=== PATIENT | female | born 1985 | race Caucasian/White ===

== ENCOUNTER 2024-06-03 10:58 | Outpatient (OUT) | payer BC, SELFPAY ==
--- NOTE | 2024-06-03 11:33 | ECG_ITS ---
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
[2024-06-03 11:49] LABS: Basophils Absolute Auto 0.1 10^3/uL (0.0-0.1); Basophils Percent Auto 0.8 % (0.2-2.0); Eosinophils Absolute Auto 0.2 10^3/uL (0.0-0.7); Eosinophils Percent Auto 2.9 % (0.9-7.0); Hematocrit 39.1 % (36.0-48.0); Hemoglobin 13.2 g/dL (12.0-16.0); Immature Granulocytes Abs Auto 0.02 10^3/uL (0.00-0.03); Immature Granulocytes Pct Auto 0.3 % (0.0-0.5); Lymphocytes Absolute Auto 2.4 10^3/uL (1.2-3.8); Lymphocytes Percent Auto 37.5 % (20.5-60.0); Mean Corpuscular HGB Conc 33.8 g/dL (29.9-35.2); Mean Corpuscular Hemoglobin 29.5 pg (26.7-34.0); Mean Corpuscular Volume 87.3 fL (81.0-99.0); Mean Platelet Volume 9.5 fL (9.5-13.5); Monocytes Absolute Auto 0.5 10^3/uL (0.3-0.8); Monocytes Percent Auto 7.2 % (1.7-12.0); Neutrophils Absolute Auto 3.2 10^3/uL (1.4-6.5); Neutrophils Percent Auto 51.3 % (43.0-75.0); Platelet Count 233 10^3/uL (150-450); Red Blood Count 4.48 10^6/uL (4.20-5.40); White Blood Count 6.3 10^3/uL (4.0-11.0)
[2024-06-03 12:14] LABS: Anion Gap 10.9; BUN Creatinine Ratio 7.1; Calcium 9.1 mg/dL (8.5-10.1); Carbon Dioxide 28.9 mmol/L (21.0-32.0); Chloride 103 mmol/L (98-107); Estimated GFR (African America >60 (>=60 mL/min/1.73m^2); Estimated GFR (Non-African Ame >60 (>=60 mL/min/1.73m^2); Glucose 93 mg/dL (74-106); Potassium 3.8 mmol/L (3.5-5.1); Sodium 139 mmol/L (136-145)
== END 2024-06-03 10:59 | disposition home or self-care (01) ==
LOC: PST 10:59
PROVIDERS: PCP Family Medicine; Visit Provider Obstetrics & Gynecology
DX: Z01.810 Encounter for preprocedural cardiovascular examination (principal); Z01.812 Encounter for preprocedural laboratory examination; R10.2 Pelvic and perineal pain; N94.10 Unspecified dyspareunia
CPT/HCPCS: 80048; 85025; 93005

== ENCOUNTER 2024-06-12 06:15 | Day surgery (SDC) | payer BC, SELFPAY ==
[2024-06-03 11:37] VITALS: BP 108/72; PULSE 65; TEMP 36.5; O2SAT 99; BMI 27.1
[2024-06-12] VITALS (15 sets, daily range): BP systolic 97–117; BP diastolic 72–94; PULSE 68–91; TEMP 36.1–36.6; O2SAT 93–100; BMI 27.0
[2024-06-12 06:30] LABS: Basophils Absolute Auto 0.1 10^3/uL (0.0-0.1); Basophils Percent Auto 0.7 % (0.2-2.0); Eosinophils Absolute Auto 0.3 10^3/uL (0.0-0.7); Eosinophils Percent Auto 3.1 % (0.9-7.0); Hematocrit 41.6 % (36.0-48.0); Hemoglobin 14.4 g/dL (12.0-16.0); Immature Granulocytes Abs Auto 0.03 10^3/uL (0.00-0.03); Immature Granulocytes Pct Auto 0.4 % (0.0-0.5); Lymphocytes Absolute Auto 2.6 10^3/uL (1.2-3.8); Lymphocytes Percent Auto 32.7 % (20.5-60.0); Mean Corpuscular HGB Conc 34.6 g/dL (29.9-35.2); Mean Corpuscular Hemoglobin 30.2 pg (26.7-34.0); Mean Corpuscular Volume 87.2 fL (81.0-99.0); Mean Platelet Volume 9.7 fL (9.5-13.5); Monocytes Absolute Auto 0.5 10^3/uL (0.3-0.8); Monocytes Percent Auto 5.8 % (1.7-12.0); Neutrophils Absolute Auto 4.6 10^3/uL (1.4-6.5); Neutrophils Percent Auto 57.3 % (43.0-75.0); Platelet Count 229 10^3/uL (150-450); Red Blood Count 4.77 10^6/uL (4.20-5.40); Red Cell Distribution Width 11.9 % (11.0-15.0); White Blood Count 8.1 10^3/uL (4.0-11.0)
[2024-06-12 06:52] LABS: HCG Quantitative <1 mIU/mL
[2024-06-12] MEDS: LACTATED RINGER'S SOLUTION 1,000 ML 50 ML IV ×3 (07:06→10:11)
[2024-06-12] MEDS: SCOPOLAMINE 1 MG/3 DAYS TRANSDERM PATCH 1 PATCH TD (07:12)
--- NOTE | 2024-06-12 08:15 | P.ON_ITS ---
Brief Operative Note Date of procedure: 06/12/24 Pre-op diagnosis general: pelvic pain, aub, dysmenorrhea Post-op diagnosis: same as pre-op Procedure: NAME OF PROCEDURE: [ D&c hysteroscopy, dx laparoscopy ] PROCEDURE: The patient was taken back to the Operating Room where she was prepped and draped in normal sterile fashion after being placed under general anesthesia without difficulty. She was also placed in the dorsal lithotomy position. A weighted speculum was placed in the patient?s vagina. The anterior lip of the cervix was identified and grasped with a single tooth tenaculum. The patient?s uterus was then sounded roughly to [? 8] cm. The patient was then gently dilated using Hegar dilators. The hysteroscope was passed through the patient?s cervix into the uterus. Both ostia were identified. fluffy appearing endometrium. No gross evidence of malignancy, no gross evidence of polyps or fibroids. Gentle currettage was performed, The hysteroscope was then removed from the uterus. The endometrial curettings were sent out to pathology. The single tooth tenaculum was then removed from the patient's anterior lip of the cervix where excellent hemostasis was noted. All instruments were removed from the patient?s vagina. . A sponge stick was placed into the patient's vagina. Attention was turned to the patient's abdomen, where a small umbilical incision was made. The fascia was tented using Roxana clamps and the fascia was entered sharply. Confirmation of intraabdominal placement of the 10 mm port was confirmed under direct visualization using a laparoscope. The patient's abdomen was then insufflated using CO2 gas with approximately 4 liters. A second port was placed left laterally, this was done under direct visualization with a 5 mm port. Survey of the patient's abdomen demonstrated normal liver and gallbladder. Survey of the patient's pelvic anatomy demonstrated normal appearing rt and lt ovary and tubes as well as normal appearing uterus. No endometrial implants could be noted, no evidence of any pelvic disease was seen, normal appearing pelvic cavity. All instruments were removed from the patient's abdomen. The patient's abdomen was deinsufflated of CO2 gas. The patient tolerated the procedure well. Sponge stick was removed from the patient's vagina. The patient's infraumbilical fascia was closed using #0 Vicryl on a GI needle. The patient's skin was closed laterally and infraumbilically using 4-0 Vicryl. The patient tolerated the procedure well. Sponge, lap and needle counts were correct x 2. The patient was taken to Recovery Room in stable condition. Anesthesia: MAC Surgeon: Henrique Hennessy [employer] Milk Receiver: Almita Beard Estimated blood loss (mL): 5 Pathology: other (endometrial currettings) Condition: stable Disposition: PACU Urinary Catheter Management Urinary Catheter Management 2-way Urethral: Cath placed during this visit: no
[2024-06-12] MEDS: MEPERIDINE HCL/PF 25 MG/ML VIAL IM (10:03)
== END 2024-06-12 11:35 | disposition home or self-care (01) ==
PROVIDERS: PCP Family Medicine; Visit Provider Obstetrics & Gynecology
PROC: (CPT 00840; principal; 2024-06-12 07:30)
DX: R10.2 Pelvic and perineal pain (principal); N94.10 Unspecified dyspareunia; N93.9 Abnormal uterine and vaginal bleeding, unspecified; J45.909 Unspecified asthma, uncomplicated; M79.7 Fibromyalgia; K21.9 Gastro-esophageal reflux disease without esophagitis; K30 Functional dyspepsia; Q79.60 Ehlers-Danlos syndrome, unspecified; N84.0 Polyp of corpus uteri
CPT/HCPCS: 00840; 00952; 49320; 58558; 36415; 84702; 85025; J0131; J1100; J2175; J2250; J2371; J2405; J2704; J3010

== ENCOUNTER 2024-08-12 09:57 | Outpatient (OUT) | payer BC, SELFPAY ==
--- OUTSIDE RECORDS SUMMARY | 2024-07-17 10:27 | XMS_ITS ---
Author Name Auto Generated Organization OHIP Support Name Relationship Address Phone JENS, SOFIA Next of Kin [address] [place] [address], [place] [address] + Jens, Sofia Next of Kin [address] [place] [address], [place] [address] + JENS, SOFIA Next of Kin [address] [place] [address], [place] [address] + JENS, SOFIA Next of Kin [address] [place] [address], [place] [address] Unavailable JENS, SOFIA Next of Kin [address] [place] [address], [place] [address] + JENS, SOFIA Next of Kin [address] [place] [address], [place] [address] + JENS, SOFIA Next of Kin [address] [place] [address], [place] [address] + JENS, SOFIA Next of Kin [address] [place] [address], [place] [address] + JENS, SOFIA Next of Kin [address] [place] [address], [place] [address] + JENS, SOFIA Next of Kin [address] [place] [address], [place] [address] + JENS, SOFIA Next of Kin [address] [place] [address], [place] [address] + JENS, SOFIA Next of Kin [address] [place] [address], [place] [address] + JENS, SOFIA Next of Kin [address] [place] [address], [place] [address] + JENS, SOFIA Next of Kin [address] [place] [address], [place] [address] + JENS, SOFIA Next of Kin [address] [place] [address], [place] [address] + JENS, SOFIA Next of Kin [address] [place] [address], [place] [address] + JENS, SOFIA Next of Kin [address] [place] [address], [place] [address] + JENS, SOFAI Next of Kin [address] [place] [address], [place] [address] + JENS, SOFIA Next of Kin [address] [place] [address], [place] [address] + JENS, SOFIA Next of Kin [address] [place] [address], [place] [address] + JENS, SOFIA Next of [address] [place] [address] + JENS, SOFIA Next of Kin [address] [place] [address], [place] [address] + JENS, SOFIA Next of [address] [place] [address] + Care Team Providers Care Water Supervisor Name Role Phone JENNIFER GALVAN S Attending Unavailable DEBBIE DOMINGUEZ Attending Unavailable RUSHER, JENNIFER S Referring Unavailable RUSHER, JENNIFER S Attending Unavailable NEHEMIAS HENNESSY Attending Unavailable CARMINANEHEMIAS Attending Unavailable CARMINANEHEMIAS Attending Unavailable RUSHER, JENNIFER S Referring Unavailable RUSHER, JENNIFER S Referring Unavailable RUSHER, JENNIFER S Attending Unavailable RUSHER, JENNIFER S Attending Unavailable RUSHER, JENNIFER S Attending Unavailable GILSE, KIERRA A Referring Unavailable GILES, KIERRA A Primary Care Unavailable GILES, KIERRA A Referring Unavailable GILES, KIERRA A Primary Care Unavailable GILES, KIERRA A Attending Unavailable GILES, KIERRA A Referring Unavailable GILES, KIERRA A Primary Care Unavailable GILES, KIERRA A Referring Unavailable GILES, KIERRA A Primary Care Unavailable HUSSAIN POWELL Attending Unavailable HUSSAIN POWELL Referring Unavailable GILES, KIERRA A Primary Care Unavailable HUSSAIN POWELL Referring Unavailable GILES, KIERRA A Primary Care Unavailable RUSHER, JENNIFER S Admitting Unavailable RUSHER, JENNIFER S Attending Unavailable GILES, KIERRA A Primary Care Unavailable PABLO PRUITT Attending Unavailable GILES, KIERRA A Primary Care Unavailable PABLO PRUITT Attending Unavailable KIERRA GILES Primary Care Unavailable KIERRA GILES Referring Unavailable KIERRA GILES Primary Care Unavailable NEHEMIAS HENNESSY Referring Unavailable KIERRA GILES Primary Care Unavailable Nehemias Hennessy Attending Unavailable Nehemias Hennessy Admitting Unavailable PROBLEMS DATE TYPE CONDITION / CODE ATTENDING STATUS MARLEY RCE 05/13/2024 Unknown Pelvic and perin eal pain / R10.2(ICD-10) [facility] 01/01/2024 Unknown Unspecified dysp areunia / N94.10(ICD-10) [facility] 12/06/2023 Unknown Other specified postprocedural states / Z98.890(ICD-10) JENNIFER GALVAN [facility] 12/06/2023 Unknown ganglion cyst le ft foot / UNK(Unknown) JENNIFER GALVAN [facility] 11/28/2023 Unknown Encounter for ot her preprocedural examination / Z01.818(ICD-10) [facility] 11/28/2023 Unknown Chronic kidney d isease, unspecified / N18.9(ICD-10) [facility] 11/28/2023 Unknown Sleep apnea, unspecified / G47.30(ICD-10) [facility] 11/15/2023 Unknown Aliyah-Danlos sy ndrome, 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) KIERRA GILES [facility] 09/17/2023 Unknown Tachycardia, unspecified / R00.0(ICD-10) [facility] 09/17/2023 Unknown Shortness of elvi ath / R06.02(ICD-10) [facility] 09/17/2023 Unknown Fibromyalgia / M79.7(ICD-10) [facility] 09/17/2023 Unknown Migraine with au ra, not intractable, without status migrainosus / G43.109(ICD-10) [facility] PROCEDURES No Procedure Records Found RESULTS PATHOLOGY REQUEST FOR LAB DELMY Collected: 06/12/2024 7:56 AM Status: F Source: [facility] Order Comment: [facility] TYPE CODE TESTS RESULT OUT OF RANGE REFERENCE UNITS LAB PATH [facility] Pathology Request for Lab Delmy Result Comment: See report. Scanned copy available in EMR. PERFORMED BY: [place] [id number] PATHOLOGIST LEAD TANK MECHANIC CARRILLO BLANCA M.D. Performed By: #### [facility] TO [facility] #### [address] [address] [facility] DEHYDROEPIANDROSTERONE, S Collected: 4:31 PM Status: COMPLETED Source: [facility] TYPE CODE TESTS RESULT OUT OF RANGE REFERENCE UNITS LAB DHPDRR(LOINC) Dehydroepian drosterone, S 2.5 <10 ng/mL Result Comment: NOTE ADDITIONAL INFORMATION This test was developed and its performance characteristics determined by [facility] in a manner consistent with CLIA requirements. This test has not been cleared or approved by the U.S. Food and Drug Administration. Test Performed by: [facility] - [place] [id number] Coke Burner: Macrina Multani Ph.D.; CLIA# [id number] Performed By: #### 2193-1 ## ## [facility] ([id number]) [address] [place] [address] CBC AND AUTO DIFF Collected: 05/13/2024 1:49 PM Status: COMPLETED Source: [facility] TYPE CODE TESTS RESULT OUT OF RANGE REFERENCE UNITS LAB WBC(LOINC) WBC COUNT 6.6 4.0-11.0 X10E9/L LAB RBC(LOINC) RBC COUNT 4.50 3.80-5.20 X10E12/L LAB HGB(LOINC) HEMOGLOBIN 13.6 11.7-15.5 g/dL LAB HCT(LOINC) HEMATOCRIT 39.4 35-47 % LAB MCV(LOINC) MCV 88 80-100 fL LAB MCH(LOINC) MCH 30.3 27-34 pg LAB MCHC(LOINC) MCHC 34.6 32-36 g/dL LAB RDW(LOINC) RDW 13.5 11.5-15.0 % LAB PLTC(LOINC) PLATELET COUNT 252 150-450 X10E9 /L LAB MPV(LOINC) MPV 8.6 7-12 fL LAB NEUT(LOINC) % NEUTROPHILS 55.2 % LAB LYMP(LOINC) % LYMPHOCYTES 33.7 % LAB MONO(LOINC) % MONOCYTES 6.9 % LAB EOS(LOINC) % EOSINOPHILS 3.0 % LAB BASO(LOINC) % BASOPHILS 1.2 % LAB ANEUT(LOINC) ABSOLUTE NEUTROPHIL 3.7 1.5-6.6 X10E9/L LAB ALYMP(LOINC) ABSOLUTE LYMPHOCYTE 2.2 1.0-3.5 X10E9/L LAB AMONO(LOINC) ABSOLUTE MONOCYTE 0.5 0-0.9 X10E9/L LAB AEOS(LOINC) ABSOLUTE EOSINOPHIL 0.2 0.0-0.4 X10E9/L LAB ABASO(LOINC) ABSOLUTE BASOPHIL 0.1 0.0-0.2 X10E9/L Performed By: #### CBCA, 204 15-6, THYR, HA1C, 22701-4, 99535-5 #### [facility] ([id number]) [address] [place] [address], [address] [place] [address] SERUM B HCG,3RD I.S. Collected: 025 1:49 PM Status: COMPLETED Source: [facility] TYPE CODE TESTS RESULT OUT OF RANGE REFERENCE UNITS LAB HCG(LOINC) SERUM B HCG,3RD I.S. <5 mIU/mL Result Comment: NEW REFERENC E RANGE WEEKS (SINCE LMP) MIU/mL 3 WEEKS 5 - 50 4 WEEKS 5 - 426 5 WEEKS 18 - 7,340 6 WEEKS 1,080 - 56,500 7-8 WEEKS 7,650 - 229,000 9-12 WEEKS 25,700 - 288,000 13-16 WEEKS 13,300 - 254,000 17-24 WEEKS 4,060 - 165,400 25-40 WEEKS 3,640 - 117,000 MALES AND NON- FEMALES - <5 MIU/mL This test has been FDA approved for use in only. Elevated levels are not necessarily diagnostic for trophoblastic or nontrophoblastic neoplasms. Performed By: #### CBCA, 204 15-6, THYR, HA1C, 34901-5, 61831-9 #### [facility] ([id number]) [address] [place] [address], [address] [place] [address] THYROID PROFILE Collected: 05/13/2024 1:49 PM Status: COMPLETED Source: [facility] TYPE CODE TESTS RESULT OUT OF RANGE REFERENCE UNITS LAB TSH(LOINC) TSH 1.90 0.49-4.67 uIU/mL LAB FT4(LOINC) FREE T4 0.97 0.61-1.60 ng/dL Performed By: #### CBCA, 15-6, THYR, HA1C, 43552-6, 12540-3 #### [facility] ([id number]) [address] [place] [address], [address] [place] [address] HGB A1C (GLYCO-HGB) Collected: 05/13/2024 1:49 PM Status: COMPLETED Source: [facility] TYPE CODE TESTS RESULT OUT OF RANGE REFERENCE UNITS LAB HBA1C(LOINC) HEMOGLOBIN A1C 4.9 4.4-5.6 % Result Comment: NOTE ADA Guidelines Result HgbA1c Normal : less than 5.7 % Prediabetes : 5.7 % to 6.4 % Diabetes : > 6.4 % Use with caution in patients with abnormal hemoglobin variants as the half-life of red blood cells and in vivo glycation rates are affected. LAB EAG(LOINC) AVERAGE GLUCOSE 94 mg/dL Performed By: #### CBCA, 204 15-6, THYR, HA1C, 12998-6, 34029-3 #### [facility] ([id number]) [address] [facility], [address] [place] [address] FOLLICLE STIM HORMONE Collected: 05/13/2024 1:4 9 PM Status: COMPLETED Source: [facility] TYPE CODE TESTS RESULT OUT OF RANGE REFERENCE UNITS LAB FSH(LOINC) FOLLICLE STIM HORMONE 2.9 mIU/mL Result Comment: NORMAL FEMALE Luteal 1.8-5.1 mIU/mL Follicular 3.8-8.8 mIU/mL Mid Cycle 4.5-22.5 mIU/mL [place] 16.7-113.6 mIU/mL Performed By: #### MARKUS, 15-6, THYR, HA1C, 11841-1, 36732-0 #### [facility] ([id number]) [address] [place] [address], [address] [place] [address] LUTEINIZING HORMONE Collected: 05/13/2024 1:49 PM Status: COMPLETED Source: [facility] TYPE CODE TESTS RESULT OUT OF RANGE REFERENCE UNITS LAB LH(LOINC) LUTEINIZING HORMONE 3.2 mIU/mL Result Comment: NORMAL FEMALE Follicular 2.1-10.9 mIU/mL Mid Cycle 19.2-103 mIU/mL Luteal 1.2-12.9 mIU/mL [place] 10.9-58.6 mIU/mL Performed By: #### LCA, 15-6, THYR, HA1C, 83843-4, 92801-9 #### [facility] ([id number]) [address] [place] [address], [address] [place] [address] DHEA S Collected: 05/13/2024 1:49 PM S tatus: COMPLETED Source: [facility] TYPE CODE TESTS RESULT OUT OF RANGE REFERENCE UNITS LAB DHEAS(LOINC) DHEA S 130 23-266 ug/dL Performed By: #### 2191-5 ## ## [facility] ([id number]) [address] [place] [address], [address] [place] [address] US PELVIC WITH TRANSVAGINAL Observed: 01/01/2024 10:44 AM Status: COMPLETED Source: [facility] PELVIC WITH TRANSVAGINAL CLINICAL INFORMATION: Unspecified dyspareunia COMPARISON: None. PROCEDURE: Transabdominal imaging was obtained for the detection of extra- adnexal pathology. Transvaginal imaging was obtained for better visualization of the adnexa and endometrium. FINDINGS: The uterus measures 8.7 x 6.1 x 4.5 cm. Endometrial thickness is 8 mm. Cervical nabothian cysts. The right ovary measures 3.3 x 2.0 x 1.4 cm. The left ovary measures 3.3 x 1.9 x 2.1 cm. Dominant follicle left ovary 1.7 cm. No free fluid. IMPRESSION: * No acute findings. Finalized by Jeff Perry MD on 01/01/2024 11:16 AM SURGICAL PATHOLOGY Collected: 8:08 AM Status: COMPLETED Source: [facility] TYPE CODE TESTS RESULT OUT OF RANGE REFERENCE UNITS LAB [id number]&rpt Surgical Pathology Result Comment: [facility] [address] [place] [address] Surgical Pathology Consultation Patient Name:KAYLA COLINDRES:1985 (Age: 38)Gender:FTaken:4Reported:12/14/2023hysician(s):Jennifer Ramos To: Rec. #:[id number]: #[id number] Final Pathologic Diagnosis Soft tissue, left foot: Ganglion cyst. Report Electronically Signed Out [id number] Whittaker MD Interpretation performed at [facility], [address] [place] [address], License number: [id number]. Clinical History Ganglion cyst left foot. Gross Description Received in formalin labeled JENS, left foot mass is a adrian-yellow portion of skin tissue that measures 1.0 x 0.3 x 0.1 cm. The specimen exhibits underlying subcutaneous soft tissue that measures 1.9 x 1.0 x 0.8 cm. The resection margin is inked green. The specimen is serially section to reveal a cystic structure filled with clear mucoid material. A hardware supplies sales representative cross-section is submitted in a single cassette. (1, ss, [id number],m6) DM. dm/12/07/2023NSK Specimen(s) Received Mass left foot Fee Codes(s): 1; 61320 URINE NURSING Collected: 12/06/2023 6 :40 AM Status: COMPLETED Source: [facility] TYPE CODE TESTS RESULT OUT OF RANGE REFERENCE UNITS LAB NUCG(LOINC) URINE NURSING Negative (qualifier value) NEG Performed By: #### 2106-3 ## ## [facility] ([id number]) [address] [place] [address], [place] [address] BASIC METABOLIC PANL Collected: 11/28/2023 1:45 PM Status: COMPLETED Source: [facility] TYPE CODE TESTS RESULT OUT OF RANGE REFERENCE UNITS LAB NA(LOINC) SODIUM 138 134-146 mmol/L LAB K(LOINC) POTASSIUM 3.7 3.5-5.0 mmol/L LAB CL(LOINC) CHLORIDE 102 98-109 mmol/L LAB CO2(LOINC) CARBON DIOXIDE 27 22-32 mmol/L LAB AGAP(LOINC) ANION GAP 9 5-15 mmol/L LAB BUN(LOINC) BLOOD UREA NITROGEN 10 5-23 mg/dL LAB CRET(LOINC) CREATININE 0.97 0.40-1.00 mg/dL Result Comment: METHOD TRACE ABLE TO IDMS STANDARD LAB GLU(LOINC) GLUCOSE 100 High 65-99 mg/dL LAB CA(LOINC) CALCIUM 9.4 8.5-10.5 mg/dL LAB EGFR(LOINC) eGFR (CKD-EPI) NON-RACE DEPENDENT 76 >59 ml/min/1. 73sq.m Result Comment: Reported eGFR is based on the CKD-EPI 2020 equation that does not use a race coefficient. Performed By: #### KENNY, PINR #### [facility] ([id number]) [address], [address] [place] [address] PROTIME AND INR Collected: 11/28/2023 1:45 PM Status: COMPLETED Source: [facility] TYPE CODE TESTS RESULT OUT OF RANGE REFERENCE UNITS LAB PROX(LOINC) PROTIME 13.2 9.8-13.2 sec LAB INR(LOINC) INR 1.1 0.8-1.1 Performed By: #### BMP, PINR #### [facility] ([id number]) [address], [address] [place] [address] MR FOOT LEFT W AND WO IV CONTRAST Observed: 11/07/2023 12:00 AM Status: F Source: [facility] EPIC EXAM: MR FOOT LEFT W AND WO IV CONTRAST HISTORY: Soft tissue lesion along the medial aspect of the first metatarsal COMPARISON : None available TECHNIQUE: Multiplanar multisequence MRI of the forefoot was performed without and with contrast. FINDINGS: Within the subcutaneous soft tissues along the medial aspect of the neck of the first metatarsal just distal to a marker placed on the skin there is a round 8 mm hyperintense T2/hypointense T1 structure demonstrating very thin peripheral enhancement. No adjacent soft tissue edema. No signal abnormality of the first metatarsal or other visualized bones. Flexor and extensor tendons are intact. Musculature of the foot is within normal limits. IMPRESSION: Findings most compatible with 8 mm ganglion along the medial aspect of the neck of the first metatarsal. ELECTRONICALLY SIGNED BY: Pedro Rodriguez DO XR CHEST 2 VWS Observed: 09/17/2023 5:25 PM Status: COMPLETED Source: [facility] XR CHEST 2 VWS XR CHEST 2 VWS HISTORY: Shortness of breath, cough COMPARISON: Chest x-ray 03/22/2020 FINDINGS: PA and lateral upright films obtained. The cardiomediastinal silhouette is within normal limits. No pneumothorax or pleural effusion. No consolidation. IMPRESSION: * No acute cardiopulmonary process. ISebastian MD have personally reviewed the image(s) and agree with and/or edited the report Finalized by Sebastian Sandhu MD on 09/18/2023 11:46 AM CBC AND AUTO DIFF Collected: 09/17/2023 5:02 PM Status: COMPLETED Source: [facility] TYPE CODE TESTS RESULT OUT OF RANGE REFERENCE UNITS LAB WBC(LOINC) WBC COUNT 7.7 4.0-11.0 X10E9/L LAB RBC(LOINC) RBC COUNT 4.53 3.80-5.20 X10E12/L LAB HGB(LOINC) HEMOGLOBIN 13.5 11.7-15.5 g/dL LAB HCT(LOINC) HEMATOCRIT 39.3 35-47 % LAB MCV(LOINC) MCV 87 80-100 fL LAB MCH(LOINC) MCH 29.7 27-34 pg LAB MCHC(LOINC) MCHC 34.3 32-36 g/dL LAB RDW(LOINC) RDW 13.4 11.5-15.0 % LAB PLTC(LOINC) PLATELET COUNT 245 150-450 X10E9 /L LAB MPV(LOINC) MPV 7.9 7-12 fL LAB NEUT(LOINC) % NEUTROPHILS 53.6 % LAB LYMP(LOINC) % LYMPHOCYTES 38.0 % LAB MONO(LOINC) % MONOCYTES 4.6 % LAB EOS(LOINC) % EOSINOPHILS 3.0 % LAB BASO(LOINC) % BASOPHILS 0.8 % LAB ANEUT(LOINC) ABSOLUTE NEUTROPHIL 4.1 1.5-6.6 X10E9/L LAB ALYMP(LOINC) ABSOLUTE LYMPHOCYTE 2.9 1.0-3.5 X10E9/L LAB AMONO(LOINC) ABSOLUTE MONOCYTE 0.4 0-0.9 X10E9/L LAB AEOS(LOINC) ABSOLUTE EOSINOPHIL 0.2 0.0-0.4 X10E9/L LAB ABASO(LOINC) ABSOLUTE BASOPHIL 0.1 0.0-0.2 X10E9/L Performed By: #### CBCA, 824 77-1, CMP, 1987-, THYR, 31446-7 #### [facility] ([id number]) [address], [address] [place] [address] ESR, ERYTHROCYTE SEDIMENTATI ON RATE Collected: 09/17/2023 5:02 PM Status: COMPLETED Source: [facility] TYPE CODE TESTS RESULT OUT OF RANGE REFERENCE UNITS LAB ESR(LOINC) ESR, ERYTHROCYTE SEDIMENTATION RATE 1 0-20 mm/h Performed By: #### MARKUS, 824 77-1, CMP, 1987-06, THYR, 84448-8 #### [facility] ([id number]) [address] [facility], [address] [place] [address] COMPREHENSIVE METABOLIC PANEL Collected: 2023 5:02 PM Status: COMPLETED Source: [facility] TYPE CODE TESTS RESULT OUT OF RANGE REFERENCE UNITS LAB NA(LOINC) SODIUM 139 134-146 mmol/L LAB K(LOINC) POTASSIUM 3.4 Low 3.5-5.0 mmol/L LAB CL(LOINC) CHLORIDE 103 98-109 mmol/L LAB CO2(LOINC) CARBON DIOXIDE 28 22-32 mmol/L LAB AGAP(LOINC) ANION GAP 8 5-15 mmol/L LAB BUN(LOINC) BLOOD UREA NITROGEN 6 5-23 mg/dL LAB CRET(LOINC) CREATININE 1.03 High 0.40-1.00 mg/dL Result Comment: METHOD TRACE ABLE TO IDMS STANDARD LAB GLU(LOINC) GLUCOSE 88 65-99 mg/dL LAB CA(LOINC) CALCIUM 9.4 8.5-10.5 mg/dL LAB TP(LOINC) TOTAL PROTEIN 7.4 6.0-8.0 g/dL LAB ALB(LOINC) ALBUMIN 4.3 3.2-5.3 g/dL LAB ALK(LOINC) ALKALINE PHOSPHATASE 21 Low 39-130 U/L LAB AST(LOINC) AST 12 0-41 U/L LAB ALT1(LOINC) ALT 9 0-31 U/L LAB TBIL(LOINC) BILIRUBIN,TOTAL 0.7 0.3-1.2 mg/d L LAB EGFR(LOINC) eGFR (CKD-EPI) NON-RACE DEPENDENT 70 >59 ml/min/1 .73sq.m Result Comment: Reported eGFR is based on the CKD-EPI 2020 equation that does not use a race coefficient. Performed By: #### MARKUS, 824 77-1, CMP, 1987-06, THYR, 76218-0 #### [facility] ([id number]) [address] [place] [address], [address] [address] C REACTIVE PROTEIN Collected: 09/17/2023 5:02 P M Status: COMPLETED Source: [facility] TYPE [facility] RESULT OUT OF RANGE REFERENCE UNITS LAB CRP(LOINC) C REACTIVE PROTEIN 0.2 0.000-0.744 mg/dL Performed By: #### CBCA, 824 77-1, [facility], 1989-06, THYR, 07302-4 #### [facility] ([id number]) [address] [place] [address], [address] [address] THYROID PROFILE Collected: 09/17/2023 5:02 PM Status: COMPLETED Source: [facility] TESTS RESULT OUT OF RANGE REFERENCE UNITS LAB TSH(LOINC) TSH 2.37 0.49-4.67 uIU/mL LAB FT4(LOINC) FREE T4 0.92 0.61-1.60 ng/dL Performed By: #### CBCA, 824 77-1, CMP, 1987-06, THYR, 89512-3 #### [facility] ([id number]) [address] [place] [address] [place]ALE SCREEN W/REFLEX Collected: 09/17/2023 5:02 PM Status: COMPLETED Source: [facility] TYPE [facility]S RESULT OUT OF RANGE REFERENCE UNITS LAB GALE(LOINC) GALE Screen w/reflex Negative (qualifier value) NEG Result Comment: Testing performed using multiplex flow immunoassay. Eleven different antigens associated with systemic autoimmune diseases (dsDNA,Sm,Sm/CORPORATE DRIVER,CORPORATE DRIVER,Chromatin, SSA,SSB,Candice-1,Scl70,Ribo P,Centromere B) are included in this screening test. Performed By: #### CBCA, 824 77-1, CMP, 1987-06, THYR, 88909-4 #### [facility] ([id number]) [address] [place] [address], [address] [address] ALLERGIES DATE TYPE / CODE NAME / CODE REACTION SEVERITY SOURCE 10/08/2021 DRUG INGREDI/419 [id number]([facility] ED CT) METOCLOPRAMIDE Anxiety Low [facility] 10/08/2021 DRUG INGREDI~NON -CBORD/4195 61463([facility] D [facility]) METOCLOPRAMIDE Anxiety~Hives~I tching Low [facility] 01/02/2017 Drug Allergy/416 283597([facility] ED CT) hydromorphone/[id number] 2(RXNORM) Unknown Reaction Unknown [facility] 06/08/2015 DRUG INGREDI~NON -CBORD/4195 73076([facility] D [facility]) AMOXICILLIN TRIHYDRATE Hives High [facility] 06/08/2015 DRUG INGREDI~NON -CBORD/4195 43271([facility]) PROCHLORPERAZINE Vomiting [facility] 05/27/2015 DRUG INGREDI~NON -CBORD/4195 94601([facility]) AMOXICILLIN [facility] 05/27/2015 DRUG INGREDI~NON -CBORD/4195 55626([facility]) PROCHLORPERAZINE EDISYLATE Nausea [facility] 05/27/2015 DRUG INGREDI~NON -CBORD/4195 13620([facility]) PROMETHAZINE Vomiting [facility] 05/27/2015 DRUG INGREDI~NON -CBORD/4195 29075([facility]) METOCLOPRAMIDE HCL Abnormal Behavior [facility] ENCOUNTERS ADMIT/DISCHARGE ACCOUNT NUMBER ADMITTING ENCOUNTER CLASS LOCATION SOURCE 07/17/2024/07/18/19 [id number] Ambulatory Building:[facility] 06/12/2024/06/13/19 25 [id number] Nehemias Hennessy [facility] 05/20/2024/05/21/19 25 [id number] Ambulatory Building:[facility] 05/13/2024/05/14/19 25 [id number] Ambulatory Building:[facility] _LAB [facility] 05/05/2024/05/06/19 25 [id number] Ambulatory Building:[facility] 03/12/2024/03/12/19 25 [id number] Ambulatory Building:[facility] N NEURO [facility] 03/03/2024/03/03/19 25 [id number] Ambulatory Building:[facility] 01/02/2024/01/02/20 24 [id number] Ambulatory Building:[facility] 01/01/2024/01/01/20 24 [id number] Ambulatory Building:[facility] 12/19/2023/12/19/19 24 [id number] Ambulatory Building:[facility] 12/06/2023/12/06/19 24 [id number] Inpatient Encounter Building:[facility] 12/06/2023/12/06/19 24 [id number] Inpatient Encounter Building:[facility] 12/06/2023/12/06/19 24 [id number] JENNIFER GALVAN Inpatient Encounter Building:PF _PERIOPRoom: POOLBed: POOL [facility] 11/28/2023/11/28/19 24 [id number] [facility] 11/28/2023/11/28/19 24 [id number] Ambulatory Building:[facility] 11/28/2023/11/28/19 24 [id number] [facility] 11/21/2023/11/21/19 24 [id number] Ambulatory Building:[facility] 11/15/2023/11/15/19 24 [id number] Ambulatory Building:[facility] 11/14/2023/11/14/19 24 [id number] Ambulatory Building:[facility] 11/07/2023/11/07/19 24 [id number] Ambulatory Building:[facility] 11/07/2023/11/07/19 24 [id number] Ambulatory Building:[facility] OD [facility] 09/17/2023/09/17/19 24 [id number] Ambulatory Building:PF _XR [facility] 09/17/2023/09/17/19 [id number] Ambulatory Building:PF _LAB [facility] PAYERS ENCOUNTER GUARANTOR PAYER SUBSCRIBER SOURCE 07/17/2024 KAYLA BROWNEB: [place] [address]Ipg: (HP) Primary Insurance:BCBSPoli cy Number: [id number] tracy Date:2022-02-05 SOFIA BROWNEB: [id number] [place] [address] [facility] EPIC 06/12/[address] [place] [address]Ifk: (HP) Primary Insurance:Self PayPolicy Number: Effective Date:2024-06-12 [facility]/20/[facility]24 KAYLA BROWNEB: [place] [address]Uny: (HP) Primary Insurance:BCBSPoli cy Number: [id number] tracy Date:2022-02-05 SOFIA BROWNEB: [id number] [place] [address] [facility] EPIC 05/13/2024 KAYLA BROWNEB: [place], [place] [address]Ned: (HP) Primary Insurance:BLUE ACCESS (PPO)Policy Number: [id number] tracy Date:2022-02-05 SOFIA BROWNEB: [id number] [place], [place] [address]Pqm: (HP) () [facility] 05/05/2024 KAYLA BROWNEB: [place] [address]Vju: (HP) Primary Insurance:BCBSPoli cy Number: [id number] tracy Date:2022-02-05 SOFIA Sena LUCDOB: [id number] [facility] [place] [address] [facility] EPIC 03/12/2024 KAYLA Ledezma LUCDOB: [facility] [address]Ldu: (HP) Primary Insurance:BCBSPoli cy Number: [id number] tracy Date:2022-02-05 SOFIA Sena LUCDOB: [id number] [facility] [address] [facility] EPIC 03/03/2024 KAYLA Ledezma LUCDOB: [facility] [address]Ixd: (HP) Primary Insurance:BCBSPoli cy Number: [id number] tracy Date:2022-02-05 SOFIA Sena LUCDOB: [id number] [facility] [address] [facility] EPIC 01/02/2024 KAYLA COLINDRESDOB: [place] [address]Wyv: (HP) Primary Insurance:BCBSPoli cy Number: [id number] tracy Date:2022-02-05 SOFIA Sena LUCDOB: [id number] [facility] [address] [facility] EPIC 01/01/2024 KAYLA Ledezma LUCDOB: [place], [place] [address]Kyo: (HP) Primary Insurance:BLUE ACCESS (PPO)Policy Number: [id number] tracy Date:2022-02-05 SOFIA Sena LUCDOB: [id number] [place], [place] [address]Azr: (HP) (WP) [facility] 12/19/2023 KAYLA Darien HOLLIEB: [place] [address]Jzd: (HP) Primary Insurance:[facility] cy Number: [id number] tracy Date:2022-02-05 SOFIA J HOLLIEB: [id number] [place] [address] [facility] 12/06/2023 KAYLA Darien HOLLIEB: [place], [place] [address]Uad: (HP) Primary Insurance:BLUE ACCESS (PPO)Policy Number: [id number] tracy Date:2022-02-05 SOFIA J HOLLIEB: [id number] [place], [place] [address]Rrx: (HP) (WP) [facility] 12/06/2023 KAYLA Ledezma HOLLIEB: [place], [place] [address]Ynj: (HP) Primary Insurance:BLUE ACCESS (PPO)Policy Number: [id number] tracy Date:2022-02-05 SOFIA J HOLLIEB: [id number] [place], [place] [address]Kuk: (HP) (WP) [facility] 12/06/2023 KAYLA M HOLLIEB: [place], [place] [address]Zyq: (HP) Primary Insurance:BLUE ACCESS (PPO)Policy Number: [id number] tracy Date:2022-02-05 SOFIA J HOLLIEB: [id number] [place], [place] [address]Ddv: (HP) (WP) [facility] 11/28/2023 KAYLA HAYNES: [place], [place] [address]Mvd: (HP) Primary Insurance:BLUE ACCESS (PPO)Policy Number: [id number] tracy Date:2022-02-05 SOFIA BROWNEB: [id number] [place], [place] [address]Bte: (HP) (WP) [facility] 11/28/2023 KAYLA HAYNES: [place], [place] [address]Qio: (HP) Primary Insurance:BLUE ACCESS (PPO)Policy Number: [id number] tracy Date:2022-02-05 SOFIA BROWNEB: [id number] [place], [place] [address]Jar: (HP) (WP) [facility] 11/28/2023 KAYLA BROWNEB: [place], [place] [address]Pmz: (HP) Primary Insurance:BLUE ACCESS (PPO)Policy Number: [id number] tracy Date:2022-02-05 SOFIA BROWNEB: [id number] [place], [place] [address]Khc: (HP) (WP) [facility] 11/21/2023 KAYLA BROWNEB: [place] [address]Ffd: (HP) Primary Insurance:BCBSPoli cy Number: [id number] tracy Date:2022-02-05 SOFIA BROWNEB: [id number] [place] [address] [facility] EPIC 11/15/2023 KAYLA BROWNEB: [place], [place] [address]Elj: (HP) Primary Insurance:BLUE ACCESS (PPO)Policy Number: [id number] tracy Date:2022-02-05 SOFIA BROWNEB: [id number] [place], [place] [address]Vaz: (HP) [facility] 11/14/2023 KAYLA BROWNEB: [facility] [address]Mfj: (HP) Primary Insurance:BCBSPoli cy Number: [id number] tracy Date:2022-02-05 SOFIA BROWNEB: [id number] [facility] [address] [facility] EPIC 11/07/2023 KAYLA BROWNEB: [place] [address]Jqf: (HP) Primary Insurance:BCBSPoli cy Number: [id number] tracy Date:2022-02-05 SOFIA BROWNEB: [id number] [place] [address] [facility] EPIC 11/07/2023 KAYLA BROWNEB: [place] [address]Dgz: (HP) Primary Insurance:BCBSPoli cy Number: [id number] tracy Date:2022-02-05 SOFIA BROWNEB: [id number] [facility] [address] [facility] EPIC 09/17/2023 KAYLA BROWNEB: [place], [place] [address]Yjc: (HP) Primary Insurance:BLUE ACCESS (PPO)Policy Number: [id number] tracy Date:2022-02-05 SOFIA HAYNES: [id number] [place], [place] [address]Sya: () [facility] 09/17/2023 KAYLA HAYNES: [place], [place] [address]Mny: () Primary Insurance:BLUE ACCESS (PPO)Policy Number: [id number] tracy Date:2022-02-05 SOFIA HAYNES: [id number] [place], [place] [address]Wdx: () [facility]
--- OUTSIDE RECORDS SUMMARY | 2024-08-12 10:01 | XMS_ITS | Encounter Summary ---
Author Organization [facility] Address [address] [place], [place] [id number] Care Team Providers Care Restaurant Culinary Manager Name Role Phone Maris Guzman MD Primary Care Provider +1- [phone] Source Comments In the event this information is protected by the Federal Confidentiality of Alcohol and Drug AbusePatient Records regulations: The Federal rules restrict any use of the information to criminally investigate or prosecute any alcohol or drug abuse patient.[facility] Encounter Details Date Type Department Care Team (Late st Contact Info) Description 02/10/2019 Patient Msg Pre Anesthesia [address] [place] [address] Annabella Peralta APRN.SHIRRING MACHINE OPERATOR [employer]IC [address] [place] [address] RE: Pre-Op Instructions for Anesthesia Social History Tobacco Use Types Packs/Day Years Used Date Smoking Tobacco: Never Smokeless Tobacco: Never Alcohol Use Standard Drinks/Week Comments Not Asked 0 (1 standard drink = 0.6 oz pur e alcohol) Comments No Sex and Gender Information Value Date Recorded Sex Assigned at Female 05/30/2020 9:35 PM EDT Legal Sex Female 9:24 AM EST Gender Identity Female 05/30/2020 9:35 PM EDT Sexual Orientation Straight 05/30/2020 9: 35 PM EDT documented as of this encounter Plan of Treatment Not on file documented as of this encounter Visit Diagnoses Not on filedocumented in this encounter Care Teams Restaurant Culinary Manager Relationship Specialty Start Date End Date Maris Guzman MD PCP - General Family Medicine 01/22/13 documented as of this encounter
--- OUTSIDE RECORDS SUMMARY | 2024-08-12 10:01 | XMS_ITS | Clinical Summary ---
Author Organization [facility] Address [address] [place], [place] [address] Care Team Providers Care Musical Instrument Maker Or Repairer Name Role Phone Maris Guzman MD Primary Care Provider +1- [phone] Allergies Active Allergy Reactions Criticality Noted Date Comments Amoxicillin 01/09/2003 Prochlorperazine Edisylate Unknown 3 Promethazine Hcl Vomiting 01/22/2013 Metoclopramide Hcl Mental Status Change 013 Medications raNITIdine (ZANTAC) 150 mg tablet Take 150 mg by mouth twice daily. Active LORazepam (ATIVAN) 2 mg tab Take 2 mg by mouth as directed. Active amphetamine-dext roamphetamine XR (ADDERALL XR) 15 mg 24 hr capsule Take 1 tablet by mouth once daily. 03/13/2016 Active doxycycline (VIBRA-TABS) 100 mg tablet Take 1 tablet by mouth daily at bedtime. 11/26/2019 Active dapsone 7.5 % 12/02/2019 Activ e tretinoin (RETIN-A) 0.05 % cream 12/02/2019 Active methocarbamol (ROBAXIN) 500 mg tablet Take 1 tablet by mouth four times daily as needed (for muscle spasms or pain). 28 tablet 03/28/2021 Active Active Problems Problem Noted Date Diagnosed Date Laryngopharyngeal reflux (LPR) 12/17/2019 Assessment & Plan (12/17/2019 2:21 PM EST): Assessment: patient reports Zantac is the only thing that tends to help, but is only taken prn. States aware this has been recalled. Has not taken it in more than a month. History of sleep apnea 12/17/2019 Assessment & Plan (12/17/2019 2:21 PM EST): Assessment: as a baby. Reports resolved with T&A surgery Degenerative tear of acetabular labrum 9 Delayed gastric emptying 07/04/2015 Assessment & Plan (12/17/2019 2:20 PM EST): Assessment: patient reports history of needing a J-tube and G-tube for nutrition for 3090-2189. She denies recent flaring of symptoms and reports stability. Will have patient be NPO after midnight for procedure. History of anorexia nervosa 07/04/2015 Assessment & Plan (12/17/2019 2:42 PM EST): Assessment: per outside record. Confirmed history of this with patient. She states this has not been a problem in a long time Migraine without aura, witho ut mention of intractable migraine without mention of status migrainosus 10/25/2004 Generalized anxiety disorder 10/25/2004 Family History Medical History Relation Comments Diabetes Father No Known Problems Mother Relation Status Comments Father Mother Social History Tobacco Use Types Packs/Day Years Used Date Smoking Tobacco: Never Smokeless Tobacco: Never Alcohol Use Standard Drinks/Week Comments Not Currently 0 (1 standard drink = 0.6 oz pur e alcohol) Area Deprivation Index Answer Date Preet rded National Score (1-100), lower number is lower ri sk Not on file 01/13/2020 State Score (1-10), lower number is lower risk N ot on file 01/13/2020 Data from: https://www.neighborhoodatlas.medicine.[facility].edu/. Last address used for calculation Not on file 01/13/2020 Comments No Sex and Gender Information Value Date Recorded Sex Assigned at Female 05/30/2020 9:35 PM EDT Legal Sex Female 9:24 AM EST Gender Identity Female 05/30/2020 9:35 PM EDT Sexual Orientation Straight 05/30/2020 9: 35 PM EDT Last Filed Vital Signs Vital Sign Reading Time Taken Comments Blood Pressure 94/58 12/18/2019 2:15 PM EST Pulse 73 12/18/2019 2:15 PM EST Temperature 36.7 C (98 F) 12/18/2019 2:15 PM EST Respiratory Rate 20 12/18/2019 2:15 PM EST Oxygen Saturation 98% 12/18/2019 2:1 5 PM EST Inhaled Oxygen Concentration - - Weight 62.6 kg (138 lb) 12/17/2019 1:11 PM EST patient reported Height 167.6 cm (5' 6 ) 12/17/2019 1:11 PM EST patient reported Body Mass Index 22.27 12/17/2019 1:11 PM EST Plan of Treatment Health Maintenance Due Date Last Done Comments Anxiety Screening 07/02/2001 Depression Screening 07/02/2001 HIV Screening 07/02/2001 Hepatitis C Screening 07/02/2001 Hepatitis B Vaccine (1 of 3 - 19+ 3-dose series) 07/02 Cervical Cancer Screening 07/02/2004 Mammogram Screening 2023 Covid-19 Vaccine ( season) 2023 Influenza Vaccine (#1) 2024 DTaP,Tdap,Td Vaccine (2 - Td or Tdap) 08/02/2025 Medical Devices Implanted Type Area Pump Oiler Device Identifier Shelf Expiration Date Model / Serial / Lot Fibertak Knotless Hip Suture Kermit W/#2 Fiberwire Cl Suture Implanted:Qty : 1 on 12/18/2019 at [facility] Kermit Left: Bone - Hip [employer] 11/04/2024 [id number] / / [id number] Description:KNOTLESS HIP FIB ERTAK Fibertak Knotless Hip Suture Kermit W/#2 Fiberwire Cl Suture Implanted:Qty : 1 on 12/18/2019 at [facility] Kermit Left: Bone - Hip [employer] 11/04/2024 [id number] / / [id number] Description:KNOTLESS HIP FIB ERTAK Fibertak Knotless Hip Suture Kermit W/#2 Fiberwire Cl Suture Implanted:Qty : 1 on 12/18/2019 at [facility] Kermit Left: Bone - Hip [employer] 11/04/2024 [id number] / / [id number] Description:KNOTLESS HIP FIB ERTAK Kermit Q-Fix 1.8mm Suture - [id number] Implanted:Qty : 1 on 02/13/2019 at [facility] Suture Kermit Right: Bone - Hip [employer] 10/31/2021 Description:Q-FIX ANCHOR Kermit Q-Fix 1.8mm Suture - [id number] Implanted:Qty : 1 on 02/13/2019 at [facility] Suture Kermit Right: Bone - Hip [employer] 10/13/202120390319 Description:Q-FIX ANCHOR Kermit Q-Fix 1.8mm Suture - [id number] Implanted:Qty : 1 on 02/13/2019 at [facility] Suture Kermit Right: Bone - Hip [employer] 10/15/202120390320 Description:Q-FIX ANCHOR Insurance [employer] Care Teams Musical Instrument Maker Or Repairer Relationship Specialty Start Date End Date Maris Guzman MD PCP - General Family Medicine 01/22/13
--- OUTSIDE RECORDS SUMMARY | 2024-08-12 10:01 | XMS_ITS | Encounter Summary ---
Author Organization [facility] Address [address] [place] [address] Care Team Providers Care Environmental Protection Inspector Name Role Phone Maris Guzman MD Primary Care Provider + [phone] Tamra Bonilla DO Unavailable [phone] Encounter Details Date Type Department Care Team (Late st Contact Info) Description 08/07/2024 Telephone [facility] [address] [place] [address] Henrique Hennessy, [address] [facility] [address] Dea Rodriguez, [facility]11 Social History Tobacco Use Types Packs/Day Years Used Date Smoking Tobacco: Never Smokeless Tobacco: Never Alcohol Use Standard Drinks/Week Comments Never 0 (1 standard drink = 0.6 oz pur e alcohol) Comments No Sex and Gender Information Value Date Recorded Sex Assigned at Female 10/31/2023 10:06 AM EDT Legal Sex Female 6:46 PM EDT Gender Identity Female 10/31/2023 10:06 AM EDT Sexual Orientation Not on file documented as of this encounter Miscellaneous Notes * Telephone Encounter - Bettie Tapia LPN - 08/07/2024 10:49 AM EDT I am scheduled for a hysterectomy on august 14 with removal of ovaries. Also, I had an appointment with Juliette fabian that was supposed to be with Dr. Hennessy. And I still have a few questions that I should probably be asked. I did not know if you could give me a call back hopefully before the end of today with it being a holiday, if not Sunday, like as a P because because it regards medication and time, my phone number is [phone]. Thank you so much. Patient would like to discuss medication as she is doing so much better and will need to have othermedications sent in and she can not do adhesives and would have to be gel form. Patient states her pharmacy took a while to get into and for her to start. Patient did ask about the surgery if she would have to stay over and she was advised this would be a case to case issue and she can plan for overnight with childcare and if not necessary that is good. PVU. documented in this encounter Plan of Treatment Upcoming Encounters Date Type Department Care Team (Late st Contact Info) Description 08/21/2024 8:30 AM EDT [facility] Visit [facility] [address] [facility] [place] [address] Ana Laura Daniels PA [address] [facility] [address] [place], [facility]11 09/25/2024 8:30 AM EDT Office Visit [facility] [address] [facility] [place] [address] Ana Laura Daniels PA [address] [facility] [place] [address] documented as of this encounter Visit Diagnoses Not on filedocumented in this encounter Care Teams Environmental Protection Inspector Relationship Specialty Start Date End Date Maris Guzman MD [address] [place] [address] PCP - General 11/13/23 Tamra Bonilla DO [address] [place] [address] Referring Physician Neurology 03/12/24 documented as of this encounter
--- OUTSIDE RECORDS SUMMARY | 2024-08-12 10:01 | XMS_ITS | Clinical Summary ---
Author Organization [facility] Address [address] [place] [address] Care Team Providers Care Customer Operations Representative Name Role Phone Maris Guzman MD Primary Care Provider + [phone] Tamra Bonilla DO Unavailable [phone] Allergies Active Allergy Reactions Criticality Noted Date Comments Amoxicillin Hives,Rash High 10/30/1984 Other Reaction(s): hives, Other (See Comments) TABS Benzoin Hives,Rash Low 07/17/2024 Hydromorphone Unknown High 05/27/2015 Other Reaction(s): Unknown, Unknown Other reaction(s): vomiting/psychotic TABS Metoclopramide Anxiety,Hives,Itching Low 04/29/2002 Other Reaction(s): Abnormal Behavior, Hallucinating, Mental Status Change, Other (See Comments), Unknown TABS Other reaction(s): Other (See Comments), Unknown Pantoprazole 11/07/2023 Other Reaction(s): Unknown Prochlorperazine 04/29/2006 Promethazine 04/01/2006 Other Reaction(s): Unknown, Vomiting, Vomiting TABS Medications albuterol HFA 90 mcg/act inhaler 4 Active Xanax 1 MG tablet 8 Active Adderall XR 10 MG 24 hr capsule 1 (one) time each day at the same time 2 Active methocarbamol (Robaxin) 500 MG tablet 0 Active ondansetron (Zofran) 8 MG tablet Take 8 mg by mouth Active rizatriptan (Maxalt) 10 MG tablet Take 10 mg by mouth 1 (one) time if needed for migraine May repeat in 2 hours if unresolved. Do not exceed 30 mg in 24 hours. Active butalbital-acet aminophen-caffe ine 50-325-40 MG tablet Take 1 tablet by mouth every 4 (four) hours if needed Active dicyclomine (Bentyl) 20 MG tablet 5 Active estradiol (Estrace) 0.1 MG/GM vaginal creamIndication s:Dyspareunia in female 2g vaginal daily for 2 weeks, then 2 times weekly following initial 2 weeks 42.5 g 5 Active Active Problems Problem Noted Date Diagnosed Date Pain in female genitalia on intercourse 05/06/19 25 Pelvic pain in female 05/05/2024 Encounter for consultation 05/05/2024 Encounters Date Type Department Care Team Description 08/07/20[address] Tele[address] [facility] [address] [place] [address] Nehemias Hennessy, DO 07/17/2024 10:40 AM EDT Office Visit [facility] [address] [place] [address] Nehemias Hennessy, DO Pre-op examination; Menorrhagia with irregular cycle; Pelvic pain; Dysmenorrhea; Dyspareunia in female; PMDD (premenstrual dysphoric disorder) 07/17/2024 Travel 06/12/2024 Abstract [facility] [address] [place] [address] Nehemias Hennessy, DO 06/12/2024 Abstract [facility] [address] [place] [address] Nehemias Hennessy, DO 06/12/2024 External Result Encounter [facility] External Department Unsolicited Nehemias Hennessy, DO 06/12/2024 Clinisync Result Encounter [facility] External Department Unsolicited Nehemias Hennessy, DO 06/03/2024 Clinisync Result Encounter [facility] External Department Unsolicited Nehemias Hennessy, DO 06/03/2024 Clinisync Result Encounter [facility] External Department Unsolicited Nehemias Hennessy, DO 05/20/2024 2:10 PM EDT Consult [facility] [address] [place] [address] Nehemias Hennessy DO Pre-op evaluation; Pelvic pain in female; Dyspareunia, female 05/13/2024 External Result Encounter [facility] External Department Unsolicited Nehemias Hennessy DO 05/13/2024 Travel from Last 3 Months Immunizations Immunization Administration Dates Next Due Rho(D)-IG 08/03/2015 Tdap 08/03/2015 Family History Relation Name Status Comments Father Alive Mother Alive Social History Tobacco Use Types Packs/Day Years Used Date Smoking Tobacco: Never Smokeless Tobacco: Never Tobacco Cessation:Counseling Given: Not Answered Alcohol Use Standard Drinks/Week Comments Never 0 (1 standard drink = 0.6 oz pur e alcohol) Comments No Sex and Gender Information Value Date Recorded Sex Assigned at Female 10/31/2023 10:06 AM EDT Legal Sex Female 6:46 PM EDT Gender Identity Female 10/31/2023 10:06 AM EDT Sexual Orientation Not on file Last Filed Vital Signs Vital Sign Reading Time Taken Comments Blood Pressure 114/72 07/17/2024 10:49 AM EDT Pulse - - Temperature - - Respiratory Rate - - Oxygen Saturation - - Inhaled Oxygen Concentration - - Weight 78 kg (172 lb) 07/17/2024 10:49 AM EDT Height 167.6 cm (5' 6 ) 03/03/2024 1:17 PM EST Body Mass Index 27.76 03/03/2024 1:17 PM EST Plan of Treatment Upcoming Encounters Date Type Department Care Team (Late st Contact Info) Description 08/21/2024 8:30 AM EDT Office Visit [facility] [place] [address] Ana Laura Daniels PA [facility] [address] [place], [place] [id number] 09/25/2024 8:30 AM EDT Office Visit [facility] [place] [address] Ana Laura Daniels PA [address] [place] [address] Health Maintenance Due Date Last Done Comments Pap Smear 07/02/2004 Cervical Cancer Screening 07/02/2013 HPV/Cotest 07/02/2013 Mammogram 2023 10/26/2020 Influenza Vaccine (#1) 2024 Procedures Procedure Name Priority Date/Time Associated Diagnosis Comments PATHOLOGY REQUEST FOR LAB DELMY Routine 06/12/2024 7:56 AM EDT [facility] PREG QUANT HCG Routine 06/12/2024 6: 26 AM EDT ALL CBC WITH AUTO DIFF Routine 06/12/2024 6:26 AM EDT ALL BASIC METABOLIC PANEL Routine 06/03/2024 11:40 AM EDT ALL CBC WITH AUTO DIFF Routine 06/03/2024 11:40 AM EDT ECG 12-LEAD 06/03/2024 11:39 AM EDT POCT , URINE Routine 05/20/2024 2:29 PM EDT Pre-op evaluation POCT URINALYSIS DIPSTICK Routine 05/20/2024 2:29 PM EDT Pre-op evaluation DEHYDROEPIANDROSTERON E, S Routine 05/13/2024 4:31 PM EDT LH Routine 05/13/2024 1:49 PM EDT FSH Routine 05/13/2024 1:49 PM EDT HEMOGLOBIN A1C Routine 05/13/2024 1:49 PM EDT TSH Routine 05/13/2024 1:49 PM EDT DHEA SULFATE Routine 05/13/2024 1:49 PM EDT SERUM B HCG, 3RD I.S. ([facility]) Routine 05/13/2024 1:49 PM EDT CBC WITH AUTO DIFFERENTIAL Routine 05/13/2024 1:49 PM EDT from Last 3 Months Results * PATHOLOGY REQUEST FOR LAB DELMY (06/12/2024 7:56 AM EDT) PATHOLOGY REQUEST FOR LAB DELMY 06/17/2024 12:50 PM EDT [facility] Comment:See report. Scanned copy available in EMR. Other Topography unknown / Unknown 06/12/2024 7:56 AM EDT 06/12/2024 1:17 PM EDT Narrative [facility] - 06/17/2024 12:50 PM EDT [facility] us Nehemias Gerhard DO LAB BLOOD ORDERABLES Final Resul t Performing Organization Address City/[facility]/ZIP Co de Phone Number [facility] [address] [place] [address], [facility] [address] [place] [address] * [facility] PREG QUANT HCG (06/12/2024 6:26 AM EDT) [facility] HCG QUANTITATIVE <1 mIU/mL TB Comment: 5-50 0.2-1 WEEK 50-500 1-2 WEEKS 100-5,000 2-3 WEEKS 500-10,000 3-4 WEEKS 1,000-50,000 4-5 WEEKS 10,000-100,000 5-6 WEEKS 15,000-200,000 6-8 WEEKS 10,000-100,000 2-3 MONTHS 06/12/2024 6:26 AM EDT 06/12/2024 6:27 AM EDT Narrative [facility] - 06/12/2024 6:52 AM EDT us Nehemias Gerhard DO [facility] Final Result [facility] TB * ALL CBC WITH AUTO DIFF (06/12/2024 6:26 AM EDT) Only the most recent of2 resultswithin the time period is included. [facility] TB WBC 8.1 4.0 - 11.0 10 3/uL TBH TBH RBC 4.77 4.20 - 5.40 10 6/uL [facility]H TBH HGB 14.4 12.0 - 16.0 g/dL TBH TBH HCT 41.6 36.0 - 48.0 % TBH TBH MCV 87.2 81.0 - 99.0 fL TBH TBH MCH 30.2 26.7 - 34.0 pg TBH TBH MCHC 34.6 29.9 - 35.2 g/dL TBH TBH RDW 11.9 11.0 - 15.0 % TBH TBH PLT 229 150 - 450 10 3/uL TBH TBH MPV 9.7 9.5 - 13.5 fL TBH NEUTROPHILS PERCENT AUTO 57.3 43.0 - 75.0 % TBH LYMPHOCYTES PERCENT AUTO 32.7 20.5 - 60.0 % TBH MONOCYTES PERCENT AUTO 5.8 1.7 - 12.0 % TBH TBH EO % 3.1 0.9 - 7.0 % [facility]H BASOPHILS PERCENT AUTO 0.7 0.2 - 2.0 % [facility] IMMATURE GRANULOCYTES PCT AUTO 0.4 0.0 - 0.5 % TBH NEUTROPHILS ABSOLUTE AUTO 4.6 1.4 - 6.5 10 3/uL TBH LYMPHOCYTES ABSOLUTE AUTO 2.6 1.2 - 3.8 10 3/uL TBH MONOCYTES ABSOLUTE AUTO 0.5 0.3 - 0.8 10 3/uL TBH TBH EO # 0.3 0.0 - 0.7 10 3/uL TBH BASOPHILS ABSOLUTE AUTO 0.1 0.0 - 0.1 10 3/uL [facility] IMMATURE GRANULOCYTES ABS AUTO 0.03 0.00 - 0.03 10 3/uL [facility] 06/12/2024 6:26 AM EDT 06/12/2024 6:27 AM EDT Narrative [facility] - 06/12/2024 6:31 AM EDT Nehemias Hennessy DO [facility] Final Result Performing Organization Address [facility] Co de Phone Number [facility] * ALL BASIC METABOLIC PANEL (06/03/2024 11:40 AM EDT) SODIUM 139 136 - 145 mmol/L TBH POTASSIUM 3.8 3.5 - 5.1 mmol/L [facility]H CHLORIDE 103 98 - 107 mmol/L TBH CARBON DIOXIDE 28.9 21.0 - 32.0 mmol/L TBH ANION GAP 10.9 TBH GLUCOSE 93 74 - 106 mg/dL TBH BLOOD UREA NITROGEN 7.0 7.0 - 18.0 mg/dL TBH CREATININE 0.98 0.55 - 1.02 mg/dL TBH TBH EGFR-AF MOLDOVAN >60 >=60 mL/min/1.7 3m 2 TBH TBH EGFR-NON AF MOLDOVAN >60 >=60 mL/min/1.7 3m 2 TBH BUN CREATININE RATIO 7.1 TBH CALCIUM 9.1 8.5 - 10.1 mg/dL [facility]H 06/03/2024 11:4 0 AM EDT 06/03/2024 11:45 AM EDT Narrative [facility] - 06/03/2024 12:51 PM EDT Nehemias Hennessy DO [facility] Final Result Performing Organization Address [facility] de Phone Number [facility] * ECG 12-LEAD (06/03/2024 11:39 AM EDT) Anatomical Region Laterality Modality Other 06/03/2024 11:3 9 AM EDT Narrative 06/03/2024 12:23 [place] [address] Electrocardiograph Report Signed Patient: KAYLA COLINDRES MR#: [id number] : 1985 Acct:[id number] Age/Sex: 38 / F ADM Date: 06/03/24 Loc: PST Attending Dr: Nehemias Hennessy D.O. Ordering Physician: Nehemias Hennessy D.O. 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 Signed By: 06/03/24 1223 DD/ 1139 TD/TT: Roll Mill Operator: Procedure Note Radiology, Radiologist, MD - 06/03/2024 [place] [address] Electrocardiograph Report Signed Patient: KAYLA COLINDRES MMR#: [id number] : 1985Acct:[id number] Age/Sex: 38 / FADM Date: 06/03/24 Loc: [facility] Attending Dr: Nehemias Hennessy D.O. Ordering Physician: Nehemias Hennessy D.O. 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 Signed By:06/03/24 1223 DD/ 1139 TD/TT: Roll Mill Operator: [facility] IMAGING Final Result * POCT , urine manually resulted (05/20/2024 2:29 PM EDT) Preg Test, Ur Negative Negative Urine 05/20/2024 2:29 PM EDT [facility] POINT OF CARE TEST ENTER/EDIT OR DERABLES Final Result * POCT urinalysis dipstick manually resulted (05/20/2024 2:29 PM EDT) Color, UA Yellow Clarity, UA Clear Glucose, UA Negative Negative - 2000(110) ++++ mg/dL Bilirubin, UA Negative Negative - 4(70) +++ mg/dL Ketones, UA Positive Negative - 160(16) ++++ mg/dL Comment:trace Spec Grav, UA 1.025 1 - 1.03 Blood, UA Positive Negative - 50 Jose Luis/mcL Comment:trace pH, UA 6.0 5 - 9 Protein, UA Negative Negative - 2000(20) ++++ mg/dL Urobilinogen, UA 0.2 0.2 - 12 mg/dL Leukocytes, UA Negative Negative - 500+++ Cristian/mcL Nitrite, UA Negative Negative - Positive Urine 05/20/2024 2:29 PM EDT [facility] POINT OF CARE TEST ENTER/EDIT OR DERABLES Final Result * DEHYDROEPIANDROSTERONE, S (05/13/2024 4:31 PM EDT) DEHYDROEPIANDROSTERO NE, S 2.5 <10 ng/mL [facility] Comment: NOTE ADDITIONAL INFORMATION This test was developed and its performance characteristics determined by [facility] in a manner consistent with CLIA requirements. This test has not been cleared or approved by the U.S. Food and Drug Administration. Test Performed by: [facility] [address] [place] [address] Potato Picker: Macrina Multani Ph.D.; CLIA# [id number] PERFORMED AT [address] [place] [address] 05/13/2024 4:31 PM EDT 05/13/2024 4:32 PM EDT [employer] DO LAB BLOOD ORDERABLES Final Resul t Performing Organization Address City/State/[facility] Phone Number [facility] * SERUM B HCG, 3RD I.S. ([facility]) (05/13/2024 1:49 PM EDT) SERUM B HCG, 3RD I.S. <5 mIU/mL [facility] Comment: NEW REFERENCE RANGE WEEKS (SINCE LMP) MIU/mL 3 WEEKS [...] necessarily diagnostic for trophoblastic or nontrophoblastic neoplasms. PERFORMED AT [facility] [address] [address] 05/13/2024 1:49 PM EDT 05/13/2024 1:51 PM EDT Nehemias Gerhard DO LAB BLOOD ORDERABLES Final Resul t [facility] * CBC auto differential (05/13/2024 1:49 PM EDT) WHITE BLOOD CELL COUNT, WBC 6.6 4.0 - 11.0 X10E9/L [facility] RED BLOOD CELL COUNT, RBC 4.50 3.80 - 5.20 X10E12/L [facility] HEMOGLOBIN 13.6 11.7 - 15.5 g/dL [facility] HEMATOCRIT 39.4 35 - 47 % [facility] MEAN CELL VOLUME, MCV 88 80 - 100 fL [facility] MEAN CELL HEMOGLOBIN, MCH 30.3 27 - 34 pg [facility] MEAN CELL HEMOGLOGIN CONCENTRATION, MCHC 34.6 32 - 36 g/dL [facility] RED CELL DISTRIBUTION WIDTH, RDW 13.5 11.5 - 15.0 % [facility] PLATELET COUNT 252 150 - 450 X10E9/L [facility] MEAN PLATELET VOLUME, MPV 8.6 7 - 12 fL [facility] % NEUTROPHILS 55.2 % [facility] % LYMPHOCYTES 33.7 % [facility] % MONOCYTES 6.9 % [facility] % EOSINOPHILS 3.0 % [facility] % BASOPHILS 1.2 % [facility] ABSOLUTE NEUTROPHIL 3.7 1.5 - 6.6 X10E9/L [facility] ABSOLUTE LYMPHOCYTE 2.2 1.0 - 3.5 X10E9/L [facility] ABSOLUTE MONOCYTE 0.5 0 - 0.9 X10E9/L [facility] ABSOLUTE EOSINOPHIL 0.2 0.0 - 0.4 X10E9/L [facility] ABSOLUTE BASOPHIL 0.1 0.0 - 0.2 X10E9/L [facility] Comment:PERFORMED AT [facility] [address],[place] [address] 05/13/2024 1:49 PM EDT 05/13/2024 1:51 PM EDT us Nehemias Gerhard DO LAB BLOOD ORDERABLES Final Resul t [facility] * DHEA-sulfate (05/13/2024 1:49 PM EDT) DHEA S 130 23 - 266 ug/dL [facility] Comment:PERFORMED AT [address],[place] [address] 05/13/2024 1:49 PM EDT 05/13/2024 1:51 PM EDT us Nehemias Gerhard DO LAB BLOOD ORDERABLES Final Resul t [facility] * TSH (05/13/2024 1:49 PM EDT) Pathologist [facility] TSH 1.90 0.49 - 4.67 uIU/mL [facility] FREE T4 0.97 0.61 - 1.60 ng/dL [facility] Comment:PERFORMED AT [address],[place] [address] 05/13/2024 1:49 PM EDT 05/13/2024 1:51 PM EDT us Nehemias Gerhard DO LAB BLOOD ORDERABLES Final Resul t Performing Organization Address City/[facility] Co de Phone Number [facility] * Hemoglobin A1c (05/13/2024 1:49 PM EDT) Pathologist [facility] HEMOGLOBIN A1C 4.9 4.4 - 5.6 % [facility] Comment: NOTE ADA Guidelines Result HgbA1c Normal : less than 5.7 % Prediabetes : 5.7 % to 6.4 % Diabetes : > 6.4 % Use with caution in patients with abnormal hemoglobin variants as the half-life of red blood cells and in vivo glycation rates are affected. AVERAGE GLUCOSE 94 mg/dL [facility] Comment:PERFORMED AT [address],[place] [address] 05/13/2024 1:49 PM EDT 05/13/2024 1:51 PM EDT us Nehemias Gerhard DO LAB BLOOD ORDERABLES Final Resul t Performing Organization Address [facility] Co de Phone Number [facility] * Luteinizing hormone (05/13/2024 1:49 PM EDT) LUTEINIZING HORMONE 3.2 mIU/mL [facility] Comment: NORMAL FEMALE Follicular 2.1-10.9 mIU/mL Mid Cycle 19.2-103 mIU/mL Luteal 1.2-12.9 mIU/mL [place] 10.9-58.6 mIU/mL PERFORMED AT [address], [place] [address] 05/13/2024 1:49 PM EDT 05/13/2024 1:51 PM EDT [employer] DO LAB BLOOD ORDERABLES Final Resul t Performing Organization Address [facility] Co de Phone Number [facility] * Follicle stimulating hormone (05/13/2024 1:49 PM EDT) FOLLICLE STIM HORMONE 2.9 mIU/mL [facility] Comment: NORMAL FEMALE Luteal 1.8-5.1 mIU/mL Follicular 3.8-8.8 mIU/mL Mid Cycle 4.5-22.5 mIU/mL [place] 16.7-113.6 mIU/mL PERFORMED AT [address], [place] [address] 05/13/2024 1:49 PM EDT 05/13/2024 1:51 PM EDT [employer] DO LAB BLOOD ORDERABLES Final Resul t [facility] from Last 3 Months Insurance BCBS Care Teams Customer Operations Representative Relationship Specialty Start Date End Date Maris Guzman MD [address] [place] [address] PCP - General 11/13/23 Tamra Bonilla DO [address] [place] [phone] Referring Physician Neurology 03/12/24
--- OUTSIDE RECORDS SUMMARY | 2024-08-12 10:01 | XMS_ITS | Encounter Summary ---
Author Organization [facility] Address [address] [place] [address] Care Team Providers Care Insurance Claims Supervisor Name Role Phone Maris Guzman MD Primary Care Provider [phone] Source Comments In the event this information is protected by the Federal Confidentiality of Alcohol and Drug AbusePatient Records regulations: The Federal rules restrict any use of the information to criminally investigate or prosecute any alcohol or drug abuse patient.[facility] Encounter Details Date Type Department Care Team (Late st Contact Info) Description 10/18/2020 Patient [facility] [address] [place] [phone] Provider, Ccf RE: PT order Social History Tobacco Use Types Packs/Day Years [...] N ot on file 01/13/2020 Data from: https://[email or web address].medicine.[email or web address].edu/. Last address used for calculation Not [...] on filedocumented in this encounter Care Teams Insurance Claims Supervisor Relationship Specialty Start Date End Date Maris Guzman MD PCP - General Family Medicine 01/22/13 documented as of this encounter
--- OUTSIDE RECORDS SUMMARY | 2024-08-12 10:01 | XMS_ITS | Encounter Summary ---
Author Organization [facility] Address [address] [place] [address] Care Team Providers Care Ssds Mk 2 Advanced Operator Name Role Phone Maris Guzman MD Primary Care Provider [phone] Source Comments In the event this information is protected by the Federal Confidentiality of Alcohol and Drug AbusePatient Records regulations: The Federal rules restrict any use of the information to criminally investigate or prosecute any alcohol or drug abuse patient.[facility] Encounter Details Date Type Department Care Team (Latest Contact Info) Description 01/20/2019 Patient [facility] [address] [place] [phone] Provider, Ccf Dr. Agustín Avila Pre Op Instructions Social History Tobacco Use Types Packs/Day Years [...] on filedocumented in this encounter Care Teams Ssds Mk 2 Advanced Operator Relationship Specialty Start Date End Date Maris Guzman MD PCP - General Family Medicine 01/22/13 documented as of this encounter
--- OUTSIDE RECORDS SUMMARY | 2024-08-12 10:02 | XMS_ITS | Encounter Summary ---
Author Organization [facility] Address [address] [place] [address] Care Team Providers Care Dog Obedience Instructor Name Role Phone Maris Guzman MD Primary Care Provider [phone] Tamra Bonilla DO Unavailable [phone] Encounter Details Date Type Department Care Team (Late Contact Info) Description 12/26/2023 Abstract [facility] [address] [place] [id number] Lavell Cota, DPM [address] [place] [address] Social History Tobacco Use Types Packs/Day Years [...] on file documented as of this encounter Plan of Treatment Upcoming Encounters Date Type Department Care Team (Late Contact Info) Description 08/21/2024 8:30 AM EDT Office Visit [facility] [address] [phone] Ana Laura Daniels PA [address] [place] [address] 09/25/2024 8:30 AM EDT Office Visit [facility] [address] [address] Ana Laura Daniels PA [address] [place] [address] documented as of this encounter Visit Diagnoses Not on filedocumented in this encounter Care Teams Dog Obedience Instructor Relationship Specialty Start Date End Date Maris Guzman MD [address] [place] [address] PCP - General 11/13/23 Tamra Bonilla DO [address] [place] [address] Referring Physician Neurology 03/12/24 documented as of this encounter
--- OUTSIDE RECORDS SUMMARY | 2024-08-12 10:02 | XMS_ITS | Encounter Summary ---
Author Organization [facility] Address [facility] [place] [address] Care Team Providers Care Drug And Alcohol Counselor Name Role Phone Maris Guzman MD Primary Care Provider [phone] Source Comments In the event this information is protected by the Federal Confidentiality of Alcohol and Drug AbusePatient Records regulations: The Federal rules restrict any use of the information to criminally investigate or prosecute any alcohol or drug abuse patient.[facility] Encounter Details Date Type Department Care Team (Late st Contact Info) Description 12/17/2019 Patient Msg Pre Anesthesia [address] [place] [address] Jennifer Paredes, PASanjana [address] [place] [address] RE: Your pre-operative instructions Social History Tobacco Use Types Packs/Day Years [...] Orientation Straight 05/30/2020 9: 35 PM EDT COVID-19 Exposure Response Date Recorded In the last month, have you been in contact with someone who was confirmed or suspected to have Coronavirus / COVID-19? No / Unsure 12/17/2019 1:10 PM EST documented as of this encounter Plan of Treatment Not on file documented as of this encounter Visit Diagnoses Not on filedocumented in this encounter Care Teams Drug And Alcohol Counselor Relationship Specialty Start Date End Date Maris Guzman MD PCP - General Family Medicine 01/22/13 documented as of this encounter
--- OUTSIDE RECORDS SUMMARY | 2024-08-12 10:02 | XMS_ITS | Encounter Summary ---
Author Organization [facility] Address [address] [place] [address] Care Team Providers Care Yarn Comber Name Role Phone Maris Guzman MD Primary Care Provider [phone] Source Comments In the event this information is protected by the Federal Confidentiality of Alcohol and Drug AbusePatient Records regulations: The Federal rules restrict any use of the information to criminally investigate or prosecute any alcohol or drug abuse patient.[facility] Encounter Details Date Type Department Care Team (Latest Contact Info) Description 10/29/2019 Patient [facility] [address] [place] [phone] Provider, Ccf Dr. Avila pre-op instructions Social History Tobacco Use Types Packs/Day [...] have Coronavirus / COVID-19? No / Unsure 10/20/2019 4:17 PM EDT documented as of this encounter Plan of Treatment Not on file documented as of this encounter Visit Diagnoses Not on filedocumented in this encounter Care Teams Yarn Comber Relationship Specialty Start Date End Date Maris Guzman MD PCP - General Family Medicine 01/22/13 documented as of this encounter
--- OUTSIDE RECORDS SUMMARY | 2024-08-12 10:02 | XMS_ITS | Encounter Summary ---
Author Organization [facility] Address [address] [place] [address] Care Team Providers Care Pallet Sorter Name Role Phone Maris Guzman MD Primary Care Provider [phone] Tamra Bonilla DO Unavailable [phone] Encounter Details Date Type Department Care Team (Late Contact Info) Description 06/12/2024 Abstract [facility] [address] [place] [address] Henrique Hennessy [address] Dea Rodriguez, [facility] Social History Tobacco Use Types Packs/Day Years [...] EDT Office Visit [facility] [address] [place] [address] Ana Laura Daniels PA [address] [place], [place] [id number] 09/25/2024 8:30 AM EDT Office Visit [facility] [address] [place] [address] Ana Laura Daniels PA [address] [place] [address] documented as of this encounter Visit Diagnoses Not on filedocumented in this encounter Care Teams Pallet Sorter Relationship Specialty Start Date End Date Maris Guzman MD [address] [place] [address] PCP - General 11/13/23 Tamra Bonilla DO [address] [place] [address] Referring Physician Neurology 03/12/24 documented as of this encounter
--- OUTSIDE RECORDS SUMMARY | 2024-08-12 10:02 | XMS_ITS | Encounter Summary ---
Author Organization [facility] Address [address] [place] [address] Care Team Providers Care Litigation Coordinator Name Role Phone Maris Guzman MD Primary Care Provider [phone] Tamra Bonilla DO Unavailable [phone] Encounter Details Date Type Department Care Team (Late Contact Info) Description 06/12/2024 Abstract [facility] OB [address] [place] [address] Henrique Hennessy [address] [facility] Dea Rodriguez, [facility] Social History Tobacco Use Types Packs/Day Years [...] EDT Office Visit [facility] [address] [place] [address] Ana Laura Daniels PA [address] [facility] [place], [place] [id number] 09/25/2024 8:30 AM EDT Office Visit [facility] [address] [place] [address] Ana Laura Daniels PA [address] [place] [address] documented as of this encounter Visit Diagnoses Not on filedocumented in this encounter Care Teams Litigation Coordinator Relationship Specialty Start Date End Date Maris Guzman MD [address] [place] [address] PCP - General 11/13/23 Tamra Bonilla DO [address] [place] [address] Referring Physician Neurology 03/12/24 documented as of this encounter
--- OUTSIDE RECORDS SUMMARY | 2024-08-12 10:02 | XMS_ITS | Clinical Summary ---
Author Organization [facility] Address [id number] [place] [address] Care Team Providers Care Sodium Chlorite Operator Name Role Phone Maris Guzman MD Primary Care Provider [phone] Allergies Active Allergy Reactions Criticality Noted Date Comments Amoxicillin 05/27/2015 TABS Amoxicillin Trihydrate Hives High 06/08/2015 Prochlorperazine Edisylate Nausea 6 TABS Metoclopramide Anxiety,Hives,Itchi ng Low 10/08/2021 Other reaction(s): Other (See Comments), Unknown Promethazine Vomiting 05/27/2015 TABS Prochlorperazine Vomiting High 06/08/2015 Metoclopramide Hcl Abnormal Behavior 05/27/2015 TABS Medications desoximetasone (TOPICORT) 0.25 % cream as needed. 022 Active amphetamine-dextr oamphetamine XR (ADDERALL XR) 15 mg 24 hr capsule Take 10 mg by mouth in the morning. Active methocarbamoL (ROBAXIN) 500 mg tablet Take 1 tablet (500 mg total) by mouth every 6 (six) hours as needed (for migraine as needed). 022 Active rizatriptan (MAXALT) 10 mg tablet Take 1 tablet (10 mg total) by mouth. Active ALPRAZolam (XANAX) 1 mg tablet Take 1 tablet (1 mg total) by mouth 3 (three) times a day as needed. Active albuterol (PROVENTIL HFA;VENTOLIN HFA) 90 mcg/actuation inhaler Inhale 1 puff every 4 (four) hours as needed. For issues related to laryngopharyngeal reflux Active tretinoin (RETIN-A) 0.05 % cream Active dicyclomine (BENTYL) 20 mg tablet Take 1 tablet (20 mg total) by mouth every 6 (six) hours as needed (stomach cramping). 20 tablet Active ondansetron ODT (ZOFRAN ODT) 4 mg disintegrating tablet Dissolve 1 tablet (4 mg total) on tongue every 8 (eight) hours as needed for nausea for up to 10 doses. 10 tablet Active metoprolol succinate XL (TOPROL XL) 25 mg 24 hr tablet Take 1 tablet (25 mg total) by mouth nightly. Active butalbital-acetam inophen-caff (FIORICET, ESGIC) 50-325-40 mg per tablet Take 1 tablet by mouth every 4 (four) hours as needed for headaches. Active dapsone 7.5 % gel with pump Apply 1 Application topically in the morning. 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 States aware this has been recalled. Has not taken it in more than a month. 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 Encounters Date Type Department Care Team Description 05/13/2024 1:40 PM EDT - 05/13/2024 11:59 PM EDT Hospital Encounter [facility] - Lab [address] [place] [address] Pelvic and perineal pain (Primary Dx); Unspecified dyspareunia Discharge Disposition: Home 05/13/2024 Travel from Last 3 Months Immunizations Immunization Administration Dates Next Due Rho (D) Immune Globulin 08/03/2015 Tdap 08/03/2015 Family History Medical History Relation Name Comments Diabetes Father Breast cancer Maternal Grandmother Thyroid disease Mother Relation Name Status Comments Father Alive Maternal Grandmother Mother Alive Social History Tobacco Use Types Packs/Day Years Used Date Smoking Tobacco: Never Smokeless Tobacco: Never Tobacco Cessation:Counseling Given: Not Answered Alcohol Use Standard Drinks/Week Comments No 0 (1 standard drink = 0.6 oz pur e alcohol) Childcare Answer Date Recorded Childcare Unknown 07/17/2018 Employment Answer Date Recorded Employment Unknown 07/17/2018 Hunger Screening Answer Date Recorded Within the past 12 months we worried whether our food would run out before we got money to buy more. Never True 04/25/2022 Within the past 12 months th e food we bought just didn't last and we didn't have money to get more. Never True 04/25/2022 Purpose - Life Answer Date Recorded Purpose and direction in life Unknown Comments No Sex and Gender Information Value Date Recorded Sex Assigned at Not on file Legal Sex Female 11:22 AM EDT Gender Identity Not on file Sexual Orientation Not on file Last Filed Vital Signs Vital Sign Reading Time Taken Comments Blood Pressure 94/64 12/06/2023 8:45 AM EDT Pulse 60 12/06/2023 6:50 AM EDT Temperature 37.3 C (99.1 F) 12/06/2023 6:50 AM EDT Respiratory Rate 12 12/06/2023 8:45 AM EDT Oxygen Saturation 99% 12/06/2023 8:45 AM EDT Inhaled Oxygen Concentration - - Weight 65.8 kg (145 lb) 12/06/2023 6:50 AM EDT Height 167.6 cm (5' 6 ) 12/06/2023 6:50 AM EDT Body Mass Index 23.4 12/06/2023 6:50 AM EDT Plan of Treatment Health Maintenance Due Date Last Done Comments Depression Screening 1995 Pap Smear 12/16/2018 12/17/2015 COVID-19 Vaccine (4 - 2023-2 5 season) 2023 12/06/2020, 05/28/2020, 05/05/2020 Influenza Vaccine 10/06/2024 Adult BMI Screening 12/05/2024 12/06/2023 Tobacco Screening 12/05/2024 12/06/2023 DTaP,Tdap and Td Vaccines (2 - Td or Tdap) 08/02/2025 08/03/2015 Medical Devices Not on file Procedures Procedure Name Priority Date/Time Associated Diagnosis Comments DEHYDROEPIANDROSTERON E, SERUM Routine 05/13/2024 4:31 PM EDT Pelvic and perineal pain Unspecified dyspareunia DHEA-SULFATE Routine 05/13/2024 1:49 PM EDT Pelvic and perineal pain Unspecified dyspareunia HEMOGLOBIN A1C Routine 05/13/2024 1:49 PM EDT Pelvic and perineal pain Unspecified dyspareunia LUTEINIZING HORMONE Routine 05/13/2024 1 :49 PM EDT Pelvic and perineal pain Unspecified dyspareunia FOLLICLE STIMULATING HORMONE Routine 05/13/2024 1:49 PM EDT Pelvic and perineal pain Unspecified dyspareunia CBC WITH AUTO DIFFERENTIAL Routine 05/13/2024 1:49 PM EDT Pelvic and perineal pain Unspecified dyspareunia THYROID PROFILE INCLUDES TSH FT4 Routine 05/13/2024 1:49 PM EDT Pelvic and perineal pain Unspecified dyspareunia HCG-BETA, SERUM Routine 05/13/2024 1:49 PM EDT Pelvic and perineal pain Unspecified dyspareunia HIGH RISK HPV W/BENJAMÍN Routine 12/17/2015 7:07 PM EST from Last 3 Months or Most Recently Relevant to Health Maintenance Results * Dehydroepiandrosterone, Serum (DHEA) (05/13/2024 4:31 PM EDT) Dehydroepiandrosterone 2.5 <10 ng/mL 05/19/2024 2:06 PM EDT [facility] Comment: NOTE ADDITIONAL INFORMATION This test was developed and its performance characteristics determined by [facility] in a manner consistent with CLIA requirements. This test has not been cleared or approved by the U.S. Food and Drug Administration. Test Performed by: [facility] [address] Metal Grinder: Macrina Multani Ph.D.; CLIA# [id number] Blood Serum / Unknown 05/13/2024 4 :31 PM EDT 05/13/2024 4:32 PM EDT Henrique R Gerhard DO LAB BLOOD ORDERABLES Final Resu lt [facility] [address] [place] [address], [place] [address] * Thyroid profile includes TSH FT4 (05/13/2024 1:49 PM EDT) Pathologist [facility] TSH 1.90 0.49 - 4.67 uIU/mL 05/13/2024 6:17 PM EDT [facility] T4, free 0.97 0.61 - 1.60 ng/dL 05/13/2024 6:24 PM EDT [facility] PLASMA 05/13/2024 1:49 PM EDT 05/13/2024 1:51 PM EDT Henrique R Gerhard DO LAB BLOOD ORDERABLES Final Resu lt [facility] [address], [address] [place] [address] * CBC auto differential (05/13/2024 1:49 PM EDT) White Blood Cells 6.6 4.0 - 11.0 X10E9/L 05/13/2024 6:00 PM EDT [facility] RBC count 4.50 3.80 - 5.20 X10E12/L 05/13/2024 6:00 PM EDT [facility] Hemoglobin 13.6 11.7 - 15.5 g/dL 05/13/2024 6:00 PM EDT [facility] Hematocrit 39.4 35 - 47 % 05/13/2024 6:00 PM EDT [facility] MCV 88 80 - 100 fL 05/13/2024 6:00 PM EDT [facility] MCH 30.3 27 - 34 pg 05/13/2024 6:00 PM EDT [facility] MCHC 34.6 32 - 36 g/dL 05/13/2024 6:00 PM EDT [facility] RDW 13.5 11.5 - 15.0 % 05/13/2024 6:00 PM EDT [facility] Platelets 252 150 - 450 X10E9/L 05/13/2024 6:00 PM EDT [facility] MPV 8.6 7 - 12 fL 05/13/2024 6:00 PM EDT [facility] % neutrophils 55.2 % 05/13/2024 6:00 PM EDT [facility] % lymphocytes 33.7 % 05/13/2024 6:00 PM EDT [facility] % monocytes 6.9 % 05/13/2024 6:00 PM EDT [facility] % eosinophils 3.0 % 05/13/2024 6:00 PM EDT [facility] % Basophils 1.2 % 05/13/2024 6:00 PM EDT [facility] Neutrophils Absolute (A) 3.7 1.5 - 6.6 X10E9/L 05/13/2024 6:00 PM EDT [facility] Lymphocytes Absolute 2.2 1.0 - 3.5 X10E9/L 05/13/2024 6:00 PM EDT [facility] Monocytes Absolute 0.5 0 - 0.9 X10E9/L 05/13/2024 6:00 PM EDT [facility] Eosinophils Absolute 0.2 0.0 - 0.4 X10E9/L 05/13/2024 6:00 PM EDT [facility] Basophils Absolute 0.1 0.0 - 0.2 X10E9/L 05/13/2024 6:00 PM EDT [facility] Blood / Unknown 05/13/2024 1 :49 PM EDT 05/13/2024 1:51 PM EDT Henrique R Gerhard DO LAB BLOOD ORDERABLES Final Resu lt [facility] [address], [address] [place] [address] * DHEA-sulfate (05/13/2024 1:49 PM EDT) Pathologist [facility] DHEA-SO4 130 23 - 266 ug/dL 05/13/2024 6:16 PM EDT [facility] PLASMA 05/13/2024 1:49 PM EDT 05/13/2024 1:51 PM EDT Henrique R Gerhard DO LAB BLOOD ORDERABLES Final Resu lt [facility] [address] [place] [address], [address] [place] [address] * HCG, Quantitative, (05/13/2024 1:49 PM EDT) Hcg-beta, serum <5 mIU/mL 6:11 PM EDT [facility] Comment: NEW REFERENCE RANGE WEEKS (SINCE LMP) [...] necessarily diagnostic for trophoblastic or nontrophoblastic neoplasms. PLASMA 05/13/2024 1:49 PM EDT 05/13/2024 1:51 PM EDT Henrique Hennessy DO LAB BLOOD ORDERABLES Final Resu lt [facility] [address], [address] [place] [address] * Hemoglobin A1c (05/13/2024 1:49 PM EDT) Hemoglobin A1C 4.9 4.4 - 5.6 % 05/13/2024 6:39 PM EDT [facility] Comment: NOTE ADA Guidelines Result HgbA1c Normal : less than 5.7 % Prediabetes : 5.7 % to 6.4 % Diabetes : > 6.4 % Use with caution in patients with abnormal hemoglobin variants as the half-life of red blood cells and in vivo glycation rates are affected. Average glucose 94 mg/dL 6:39 PM EDT [facility] PLASMA 05/13/2024 1:49 PM EDT 05/13/2024 1:51 PM EDT Henrique R Gerhard LAB BLOOD ORDERABLES Final Resu lt Performing Organization Address [facility] Co de Phone Number [address], [address] [place] [address] * Luteinizing hormone (05/13/2024 1:49 PM EDT) Luteinizing hormone 3.2 mIU/mL 05/13/2024 6:49 PM EDT [facility] Comment: NORMAL FEMALE Follicular 2.1-10.9 mIU/mL Mid Cycle 19.2-103 mIU/mL Luteal 1.2-12.9 mIU/mL Post [place] 10.9-58.6 mIU/mL PLASMA 05/13/2024 1:49 PM EDT 05/13/2024 1:51 PM EDT Henrique R Gerhard DO LAB BLOOD ORDERABLES Final Resu lt Performing Organization Address [facility] [place] [facility] Co de Phone Number [address], [address] [place] [address] * Follicle stimulating hormone (05/13/2024 1:49 PM EDT) Follicle stimulating hormone 2.9 mIU/mL 05/13/2024 6:48 PM EDT [facility] Comment: NORMAL FEMALE Luteal 1.8-5.1 mIU/mL Follicular 3.8-8.8 mIU/mL Mid Cycle 4.5-22.5 mIU/mL Post [place] 16.7-113.6 mIU/mL PLASMA 05/13/2024 1:49 PM EDT 05/13/2024 1:51 PM EDT us Henrique Hennessy DO LAB BLOOD ORDERABLES Final Resu lt [facility] [address], [address] [place] [address] * High risk HPV w/benjamín (12/17/2015 7:07 PM EST) Hpv specimen type ThinPrep 12/23/2015 7:07 PM EST [facility] Hpv 16 Negative Negative 12/27/2015 1:18 PM EST [facility] Hpv 18 Negative Negative 12/27/2015 1:18 PM EST [facility] Other high risk hpv Negative Negative 12/27/2015 1:18 PM EST [facility] Comment: HPV types 31,33,35,39,45,52,56,58,59,66 and 68 DNA were undetectable. 12/17/2015 7:07 PM EST 12/23/2015 7:07 PM EST us Willie Patel MD LAB BLOOD ORDERABLES F inal Result Performing Organization Address City/[facility]/ZIP Co de Phone Number [facility] [address] [place] [address], [place] [facility] from Last 3 Months or Most Recently Relevant to Health Maintenance Insurance ANTH Care Teams Sodium Chlorite Operator Relationship Specialty Start Date End Date Maris Guzman MD [address] [place] [phone] PCP - General 11/03/13
[2024-08-12 10:59] LABS: Hematocrit 41.3 % (36.0-48.0); Hemoglobin 14.1 g/dL (12.0-16.0); Immature Granulocytes Abs Auto 0.03 10^3/uL (0.00-0.03); Immature Granulocytes Pct Auto 0.4 % (0.0-0.5); Lymphocytes Absolute Auto 2.1 10^3/uL (1.2-3.8); Mean Corpuscular HGB Conc 34.1 g/dL (29.9-35.2); Mean Corpuscular Hemoglobin 29.3 pg (26.7-34.0); Mean Corpuscular Volume 85.9 fL (81.0-99.0); Platelet Count 256 10^3/uL (150-450); Red Blood Count 4.81 10^6/uL (4.20-5.40); White Blood Count 8.3 10^3/uL (4.0-11.0)
[2024-08-12 11:36] LABS: Alanine Aminotransferase 16 U/L (14-59); Albumin Globulin Ratio 0.9; Albumin Level 3.8 g/dL (3.4-5.0); Alkaline Phosphatase 34 U/L (46-116); Anion Gap 13.8; Aspartate Amino Transferase 13 U/L (15-37); Blood Urea Nitrogen 11.0 mg/dL (7.0-18.0); Calcium 9.3 mg/dL (8.5-10.1); Carbon Dioxide 28.1 mmol/L (21.0-32.0); Chloride 103 mmol/L (98-107); Estimated GFR (African America >60 (>=60 mL/min/1.73m^2); Estimated GFR (Non-African Ame >60 (>=60 mL/min/1.73m^2); Globulin 4.3 g/dL; Glucose 100 mg/dL (74-106); Potassium 3.9 mmol/L (3.5-5.1); Sodium 141 mmol/L (136-145); Total Protein 8.1 g/dL (6.4-8.2)
[2024-08-12 11:54] LABS: INR 1.15; Partial Thromboplastin Time 27.2 sec (22.3-36.2); Prothrombin Time 12.0 sec (9.0-11.6)
== END 2024-08-12 09:58 | disposition home or self-care (01) ==
LOC: PST 09:59
PROVIDERS: PCP Family Medicine; Visit Provider Obstetrics & Gynecology
DX: Z01.812 Encounter for preprocedural laboratory examination (principal); N92.0 Excessive and frequent menstruation with regular cycle; N94.10 Unspecified dyspareunia; N94.6 Dysmenorrhea, unspecified; R10.2 Pelvic and perineal pain
CPT/HCPCS: 36415; 80048; 80076; 85025; 85610; 85730; 86850; 86900; 86901

== ENCOUNTER 2024-08-14 11:05 | Day surgery (SDC) | payer BC, SELFPAY ==
[2024-08-12 10:45] VITALS: BP 132/81; PULSE 70; TEMP 36.3; O2SAT 98; BMI 27.8
[2024-08-14] VITALS (18 sets, daily range): BP systolic 94–123; BP diastolic 62–81; PULSE 65–87; TEMP 36.2–36.8; O2SAT 94–100; BMI 27.6
[2024-08-14] MEDS: SCOPOLAMINE 1 MG/3 DAYS TRANSDERM PATCH 1 PATCH TD (11:53)
[2024-08-14] MEDS: METRONIDAZOLE/SODIUM CHLORIDE 500 MG/100 ML PREMIX 100 MG IV ×2 (11:54→17:26)
[2024-08-14] MEDS: CIPROFLOXACIN 400 MG/200 ML D5W PREMIX 200 MG IV (12:37)
--- NOTE | 2024-08-14 14:59 | PM.ONB ---
Brief Operative Note Date of procedure: 08/14/24 Pre-op diagnosis general: pelvic pain, aub, dysmenorrhea, dyspareunia Post-op diagnosis: same as pre-op Procedure: NAME OF PROCEDURE: ? Robotic assisted laparoscopic hysterectomy with cystoscopy, bilateral salpingoopherectomy PROCEDURE:? The patient was taken back to the operating room, where she was prepped and draped in the normal sterile fashion after being placed in the dorsal lithotomy position.? Patient?s anesthesia was found to be adequate.? Surgical timeout was performed using two patient identifiers.? SCDs were on and in place.? Two grams of Ancef were given prior to the surgery.? Sterile Briseno catheter was inserted.? Standard size VCare was secured to the uterine cervix and the surgeon changed gloves.? Attention then was turned to the patient's abdomen, where a supraumbilical incision was then made.? Two S retractors were used to identify the patient?s fascia.? The fascia was then tented up using Roxana clamps and the patient?s fascia was incised sharply.? Patient?s abdomen was identified and entered bluntly.? The patient had the trocar placed and a pneumoperitoneum was obtained.? Approximately 4 liters of CO2 gas was used.? The camera was then placed through the trocar.? At this time, two robot trocars were placed in the patient?s left and right side, two hand widths from the midline, and this was placed under direct visualization.? The patient?s tube and ovary on the right side was tented up and the vessel sealer was then used to come across the infundibular pelvic ligament.? The vessel sealer was carried down serially to the broad ligament, to the area of the bladder flap, which was then created anteriorly, and the uterine arteries were skeletonized and sealed using the vessel sealer.? this was done contralateral side as well The colpotomy was made using the monopolar cautery on cut, and this was carried circumferentially, posteriorly to anteriorly, until the uterus was amputated.? The specimen was then removed intact through the vagina, without difficulty.? The vagina was then closed using two running V-Loc in a non-lock fashion.? The robot was undocked.? The abdomen was desufflated.? The skin defects were closed using 4-0 Vicryl.? Please note, the fascia was closed using 0 Vicryl.? Sponge, lap and needle counts were correct x2.? Patient was taken to recovery room in stable condition.? The patient was awakened by Anesthesia first.? Patient tolerated procedure well.??Please note left ovarian cystectomy was performed using the vessel sealer Anesthesia: CHANTELLE Surgeon: Henrique Hennessy Nuclear Auxiliary Operator: Almita Beard Estimated blood loss (mL): 150 Pathology: other (uterus, cervix, bilateral tubes and ovaries) Condition: stable Disposition: PACU Urinary Catheter Management Urinary Catheter Management Urethral: Cath placed during this visit: no
--- NOTE | 2024-08-14 16:31 | PC.NURSE ---
c/o nausea; no emesis; medicated with Zofran IV as ordered
[2024-08-14] MEDS: CIPROFLOXACIN IN 5 % DEXTROSE 400 MG/200 ML PREMIX 200 MG IV (17:26)
[2024-08-14 21:35] LABS: Hematocrit 35.4 % (36.0-48.0); Hemoglobin 12.3 g/dL (12.0-16.0); Immature Granulocytes Abs Auto 0.04 10^3/uL (0.00-0.03); Immature Granulocytes Pct Auto 0.3 % (0.0-0.5); Lymphocytes Absolute Auto 0.9 10^3/uL (1.2-3.8); Mean Corpuscular HGB Conc 34.7 g/dL (29.9-35.2); Mean Corpuscular Hemoglobin 29.8 pg (26.7-34.0); Mean Corpuscular Volume 85.7 fL (81.0-99.0); Platelet Count 224 10^3/uL (150-450); Red Blood Count 4.13 10^6/uL (4.20-5.40); White Blood Count 11.9 10^3/uL (4.0-11.0)
[2024-08-14] MEDS: KETOROLAC TROMETHAMINE 30 MG/ML VIAL IVP (22:30)
[2024-08-15 05:07] VITALS: BP 101/67; PULSE 101; TEMP 36.8; O2SAT 97
[2024-08-15] MEDS: KETOROLAC TROMETHAMINE 30 MG/ML VIAL IM (06:22)
[2024-08-15 08:19] VITALS: BP 98/64; PULSE 58; TEMP 37.2; O2SAT 97
== END 2024-08-15 09:19 | disposition home or self-care (01) ==
LOC: SURGOUT 15:10 → MS 16:28
PROVIDERS: PCP Family Medicine; Visit Provider Obstetrics & Gynecology
PROC: (CPT 840; principal; 2024-08-14 12:30)
DX: N94.6 Dysmenorrhea, unspecified (principal); R10.2 Pelvic and perineal pain; N93.9 Abnormal uterine and vaginal bleeding, unspecified; N94.10 Unspecified dyspareunia; N80.03 Adenomyosis of the uterus; N83.8 Other noninflammatory disorders of ovary, fallopian tube and broad ligament; F32.81 Premenstrual dysphoric disorder; M79.7 Fibromyalgia; K21.9 Gastro-esophageal reflux disease without esophagitis; Q79.60 Ehlers-Danlos syndrome, unspecified; F41.9 Anxiety disorder, unspecified
CPT/HCPCS: 58571; 36415; 84702; 85025; 88307; 96372; J0131; J0744; J1100; J1171; J1836; J1885; J2250; J2405; J2704; J3010